=== PATIENT | male | born 1965 | race Caucasian/White ===

== ENCOUNTER 2021-08-03 14:05 | Inpatient (IN) | payer OTHER ==
[2021-08-03] MEDS ORDERED: NICOTINE 10 MG CARTRIDGE (INHALER) IH PRN (15:30)
[2021-08-03] MEDS ORDERED: ACETAMINOPHEN 325 MG TABLET (FP) PO PRN ×2 (15:30)
[2021-08-03] MEDS ORDERED: ONDANSETRON *ODT* 4 MG TABLET SL PRN (15:30)
[2021-08-03] MEDS ORDERED: MENTHOL/PHENOL 1 EACH UD MM PRN (15:30)
[2021-08-03] MEDS ORDERED: MAGNESIUM HYDROX 2400MG/30ML ORAL SUSPENSION 30 ML CUP PO PRN (15:30)
[2021-08-03] MEDS ORDERED: diazePAM 5 MG TABLET PO PRN (15:30)
[2021-08-03] MEDS ORDERED: BISMUTH SUBSALICYLATE 524 MG/30 ML PO PRN (15:30)
[2021-08-03] MEDS ORDERED: MAGNESIUM CITRATE 300 ML BOTTLE PO PRN (15:30)
[2021-08-03 15:44] VITALS: BMI 21.4
[2021-08-03] MEDS: hydrOXYzine PAMOATE 25 MG CAPSULE (FP) PO SCH ×2 (22:13→22:55)
[2021-08-03] MEDS: IBUPROFEN 400 MG TABLET (FP) PO PRN (22:14)
[2021-08-03] MEDS: diazePAM 5 MG TABLET PO SCH ×2 (22:17→22:20)
[2021-08-03] MEDS: MELATONIN 5 MG TABLETS PO SCH (22:19)
[2021-08-03] MEDS: THIAMINE HCL 100 MG TABLET (FP) PO SCH (22:20)
[2021-08-03] MEDS: BUPRENORPHINE/NALOXONE 8 MG/2 MG FILM PACKET SL SCH (23:49)
[2021-08-04] MEDS: hydrOXYzine PAMOATE 25 MG CAPSULE (FP) PO SCH ×5 (05:29→22:27)
[2021-08-04] MEDS: diazePAM 5 MG TABLET PO SCH ×4 (05:29→22:26)
[2021-08-04] MEDS: PRENATAL VITAMINS W/ FOLIC ACID TABLET (FP) PO SCH (10:16)
[2021-08-04] MEDS: BUPRENORPHINE/NALOXONE 8 MG/2 MG FILM PACKET SL SCH ×2 (10:18→22:26)
[2021-08-04 11:34] LABS: CALCIUM 8.8 mg/dL (8.5-10.1)
[2021-08-04 11:35] LABS: ALBUMIN 2.8 g/dl (3.4-5.0); BLOOD UREA NITROGEN 14.8 mg/dL (7-18)
[2021-08-04 11:38] LABS: CREATININE 0.8 mg/dL (0.55-1.3)
[2021-08-04 11:40] LABS: BILIRUBIN,TOTAL 0.1 mg/dL (0.2-1)
[2021-08-04 12:41] LABS: HEMATOCRIT 32.5 % (35.4-49); MCHC 33.8 g/dl (32.0-35.9); MEAN CELL VOLUME 88.9 fl (80-96); MEAN PLT VOLUME 8.3 fl (7.5-11.1); PLATELET COUNT 416 10^3/uL (134-434); RBC 3.66 M/mm3 (4.00-5.60); RDW 14.5 % (11.9-15.9); WHITE BLOOD COUNT 5.7 K/mm3 (4.0-10.0)
[2021-08-04] MEDS: METHOCARBAMOL 500 MG TABLET PO PRN (14:36)
[2021-08-04] MEDS: MELATONIN 5 MG TABLETS PO SCH (22:26)
[2021-08-04] MEDS: THIAMINE HCL 100 MG TABLET (FP) PO SCH (22:27)
[2021-08-04] MEDS: QUEtiapine FUMARATE 100 MG TABLET (FP) PO SCH (22:27)
[2021-08-04] MEDS: MAG HYDROX/AL HYDROX/SIMETH 30 ML UNIT-DOSE CUP PO PRN (22:28)
[2021-08-05] MEDS: hydrOXYzine PAMOATE 25 MG CAPSULE (FP) PO SCH ×5 (06:35→22:30)
[2021-08-05] MEDS: diazePAM 5 MG TABLET PO SCH ×3 (06:35→22:27)
[2021-08-05] MEDS: PRENATAL VITAMINS W/ FOLIC ACID TABLET (FP) PO SCH (10:02)
[2021-08-05] MEDS: BUPRENORPHINE/NALOXONE 8 MG/2 MG FILM PACKET SL SCH ×2 (10:02→22:26)
[2021-08-05] MEDS: METHOCARBAMOL 500 MG TABLET PO PRN (22:26)
[2021-08-05] MEDS: IBUPROFEN 400 MG TABLET (FP) PO PRN (22:26)
[2021-08-05] MEDS: THIAMINE HCL 100 MG TABLET (FP) PO SCH (22:27)
[2021-08-05] MEDS: QUEtiapine FUMARATE 100 MG TABLET (FP) PO SCH (22:27)
[2021-08-05] MEDS: MELATONIN 5 MG TABLETS PO SCH (22:27)
[2021-08-05] MEDS: MAG HYDROX/AL HYDROX/SIMETH 30 ML UNIT-DOSE CUP PO PRN (22:29)
[2021-08-06] MEDS: diazePAM 5 MG TABLET PO SCH ×2 (05:48→17:37)
[2021-08-06] MEDS: hydrOXYzine PAMOATE 25 MG CAPSULE (FP) PO SCH ×5 (05:48→22:10)
[2021-08-06] MEDS: BUPRENORPHINE/NALOXONE 8 MG/2 MG FILM PACKET SL SCH ×2 (10:10→22:09)
[2021-08-06] MEDS: PRENATAL VITAMINS W/ FOLIC ACID TABLET (FP) PO SCH (11:07)
[2021-08-06] MEDS: METHOCARBAMOL 500 MG TABLET PO PRN (17:39)
[2021-08-06] MEDS: MELATONIN 5 MG TABLETS PO SCH (22:09)
[2021-08-06] MEDS: THIAMINE HCL 100 MG TABLET (FP) PO SCH (22:10)
[2021-08-06] MEDS: QUEtiapine FUMARATE 100 MG TABLET (FP) PO SCH (22:10)
[2021-08-07] MEDS: hydrOXYzine PAMOATE 25 MG CAPSULE (FP) PO SCH ×2 (05:00→09:43)
[2021-08-07] MEDS ORDERED: diazePAM 5 MG TABLET PO ONE (06:00)
[2021-08-07] MEDS: BUPRENORPHINE/NALOXONE 8 MG/2 MG FILM PACKET SL SCH (09:43)
[2021-08-07] MEDS: PRENATAL VITAMINS W/ FOLIC ACID TABLET (FP) PO SCH (09:43)
[2021-08-07 13:14] VITALS: BP 143/96; PULSE 95; TEMP 96.4
== END 2021-08-07 13:28 | disposition home or self-care (01) | DRG 773 ==
LOC: YASAS 14:05 → Y3N 16:29
PROVIDERS: ADMIT Allergy & Immunology; ATTEND Allergy & Immunology
PROC: HZ2ZZZZ Detoxification Services for Substance Abuse Treatment (ICD-10-PCS; principal; 2021-08-03)
DX: F10.230 Alcohol dependence with withdrawal, uncomplicated (principal); F11.20 Opioid dependence, uncomplicated; F14.20 Cocaine dependence, uncomplicated; F17.210 Nicotine dependence, cigarettes, uncomplicated; F19.24 Other psychoactive substance dependence with psychoactive substance-induced mood disorder; F41.9 Anxiety disorder, unspecified; F32.A Depression, unspecified; I10 Essential (primary) hypertension; R73.9 Hyperglycemia, unspecified; D64.9 Anemia, unspecified; R01.1 Cardiac murmur, unspecified; G47.00 Insomnia, unspecified; Z91.013 Allergy to seafood; Z91.018 Allergy to other foods; Z86.69 Personal history of other diseases of the nervous system and sense organs; Z86.59 Personal history of other mental and behavioral disorders; Z91.14 Patient's other noncompliance with medication regimen; Z96.653 Presence of artificial knee joint, bilateral; Z91.51 Personal history of suicidal behavior; Z56.0 Unemployment, unspecified; Z59.01 Sheltered homelessness
CPT/HCPCS: 36415; 80053; 82947; 82962; 83036; 85027; 86780; C9803; Q0162; U0003; U0005

== ENCOUNTER 2021-11-10 18:14 | Inpatient (IN) | payer OTHER ==
[2021-11-10 20:15] VITALS: BMI 21.9
[2021-11-10] MEDS ORDERED: MENTHOL/PHENOL 1 EACH UD MM PRN (21:14)
[2021-11-10] MEDS ORDERED: NICOTINE 10 MG CARTRIDGE (INHALER) IH PRN (21:14)
[2021-11-10] MEDS ORDERED: ACETAMINOPHEN 325 MG TABLET (FP) PO PRN ×2 (21:14)
[2021-11-10] MEDS ORDERED: MAG HYDROX/AL HYDROX/SIMETH 30 ML UNIT-DOSE CUP PO PRN (21:14)
[2021-11-10] MEDS ORDERED: LOPERAMIDE HCL 2 MG CAPSULE PO PRN (21:14)
[2021-11-10] MEDS ORDERED: MAGNESIUM HYDROX 2400MG/30ML ORAL SUSPENSION 30 ML CUP PO PRN (21:14)
[2021-11-10] MEDS ORDERED: ONDANSETRON *ODT* 4 MG TABLET SL PRN (21:14)
[2021-11-10] MEDS ORDERED: BISMUTH SUBSALICYLATE 524 MG/30 ML PO PRN (21:14)
[2021-11-10] MEDS ORDERED: DICYCLOMINE HCL 10 MG CAPSULE PO PRN (21:14)
[2021-11-10] MEDS ORDERED: IBUPROFEN 400 MG TABLET (FP) PO PRN (21:14)
[2021-11-10] MEDS ORDERED: MAGNESIUM CITRATE 300 ML BOTTLE PO PRN (21:14)
[2021-11-11] MEDS: MELATONIN 5 MG TABLETS PO SCH ×2 (00:10→23:02)
[2021-11-11] MEDS: THIAMINE HCL 100 MG TABLET (FP) PO SCH ×2 (00:10→23:02)
[2021-11-11] MEDS: chlordiazePOXIDE HCL 25 MG CAPSULE PO SCH ×5 (00:59→23:02)
[2021-11-11] MEDS: PRENATAL VITAMINS W/ FOLIC ACID TABLET (FP) PO SCH (10:39)
[2021-11-11] MEDS: METHOCARBAMOL 500 MG TABLET PO PRN (10:39)
[2021-11-11 10:50] LABS: HEMATOCRIT 40.4 % (35.4-49); HEMOGLOBIN 13.2 GM/dL (11.7-16.9); MCH 28.4 pg (25.7-33.7); MCHC 32.7 g/dl (32.0-35.9); PLATELET COUNT 341 10^3/uL (134-434); RBC 4.65 M/mm3 (4.00-5.60); WHITE BLOOD COUNT 5.5 K/mm3 (4.0-10.0)
[2021-11-11 10:51] LABS: CALCIUM 9.5 mg/dL (8.5-10.1)
[2021-11-11 10:52] LABS: ALBUMIN 3.7 g/dl (3.4-5.0); BLOOD UREA NITROGEN 12.1 mg/dL (7-18)
[2021-11-11 10:55] LABS: CREATININE 0.8 mg/dL (0.55-1.3)
[2021-11-11 10:57] LABS: BILIRUBIN,TOTAL 0.3 mg/dL (0.2-1); TOT PROT 7.1 g/dl (6.4-8.2)
[2021-11-12] MEDS: chlordiazePOXIDE HCL 25 MG CAPSULE PO SCH ×4 (05:52→23:04)
[2021-11-12] MEDS: PRENATAL VITAMINS W/ FOLIC ACID TABLET (FP) PO SCH (10:25)
[2021-11-12] MEDS: METHOCARBAMOL 500 MG TABLET PO PRN ×2 (10:27→18:04)
[2021-11-12 14:08] LABS: SARS-CoV-2 NAA Not Detected (Not Detected)
[2021-11-12] MEDS: chlordiazePOXIDE HCL 25 MG CAPSULE PO PRN ×2 (14:58→22:12)
[2021-11-12] MEDS ORDERED: traZODone HCL 50 MG TABLET (FP) PO SCH (22:00)
[2021-11-12] MEDS: THIAMINE HCL 100 MG TABLET (FP) PO SCH (22:12)
[2021-11-13] MEDS ORDERED: chlordiazePOXIDE HCL 10 MG CAPSULE PO PRN
[2021-11-13 00:07] LABS: SARS-CoV-2 NAA Not Detected (Not Detected)
[2021-11-13] MEDS: chlordiazePOXIDE HCL 10 MG CAPSULE PO SCH ×2 (06:17→10:30)
[2021-11-13] MEDS: PRENATAL VITAMINS W/ FOLIC ACID TABLET (FP) PO SCH (10:29)
[2021-11-13] MEDS: METHOCARBAMOL 500 MG TABLET PO PRN (10:29)
[2021-11-13 13:58] VITALS: BP 102/69; PULSE 84; TEMP 97.8
[2021-11-14] MEDS ORDERED: chlordiazePOXIDE HCL 10 MG CAPSULE PO SCH (05:00)
[2021-11-15] MEDS ORDERED: chlordiazePOXIDE HCL 10 MG CAPSULE PO ONE (05:00)
== END 2021-11-13 13:39 | disposition left against medical advice (07) | DRG 770 ==
LOC: YASAS 18:14 → Y6N 23:14
PROVIDERS: ADMIT Allergy & Immunology; ATTEND Allergy & Immunology
PROC: HZ2ZZZZ Detoxification Services for Substance Abuse Treatment (ICD-10-PCS; principal; 2021-11-10)
DX: F10.230 Alcohol dependence with withdrawal, uncomplicated (principal); F13.20 Sedative, hypnotic or anxiolytic dependence, uncomplicated; F14.20 Cocaine dependence, uncomplicated; F17.210 Nicotine dependence, cigarettes, uncomplicated; F31.9 Bipolar disorder, unspecified; F19.24 Other psychoactive substance dependence with psychoactive substance-induced mood disorder; I10 Essential (primary) hypertension; D17.1 Benign lipomatous neoplasm of skin and subcutaneous tissue of trunk; Z96.653 Presence of artificial knee joint, bilateral; Z86.2 Personal history of diseases of the blood and blood-forming organs and certain disorders involving the immune mechanism; Z86.69 Personal history of other diseases of the nervous system and sense organs; Z91.018 Allergy to other foods; Z56.0 Unemployment, unspecified; Z59.00 Homelessness unspecified
CPT/HCPCS: 36415; 80053; 85027; 86780; 87811; C9803-CS; Q0162; U0003; U0005

== ENCOUNTER 2022-06-22 14:09 | Inpatient (IN) | payer OTHER ==
[2022-06-22 15:17] VITALS: BMI 23.1
[2022-06-22] MEDS ORDERED: LOPERAMIDE HCL 2 MG CAPSULE PO PRN (16:34)
[2022-06-22] MEDS ORDERED: ACETAMINOPHEN 325 MG TABLET (FP) PO PRN ×2 (16:34)
[2022-06-22] MEDS ORDERED: BISMUTH SUBSALICYLATE 524 MG/30 ML PO PRN (16:34)
[2022-06-22] MEDS ORDERED: chlordiazePOXIDE HCL 25 MG CAPSULE PO PRN (16:34)
[2022-06-22] MEDS ORDERED: MAG HYDROX/AL HYDROX/SIMETH 30 ML UNIT-DOSE CUP PO PRN (16:34)
[2022-06-22] MEDS ORDERED: BENZOCAINE/MENTHOL (CHLORASEPTIC ) LOZENGE MM PRN (16:34)
[2022-06-22] MEDS ORDERED: ONDANSETRON *ODT* 4 MG TABLET SL PRN (16:34)
[2022-06-22] MEDS ORDERED: IBUPROFEN 400 MG TABLET (FP) PO PRN (16:34)
[2022-06-22] MEDS ORDERED: MAGNESIUM CITRATE 300 ML BOTTLE PO PRN (16:34)
[2022-06-22] MEDS ORDERED: MAGNESIUM HYDROX 2400MG/30ML ORAL SUSPENSION 30 ML CUP PO PRN (16:34)
[2022-06-22] MEDS ORDERED: DICYCLOMINE HCL 10 MG CAPSULE PO PRN (16:34)
[2022-06-22] MEDS ORDERED: hydrOXYzine PAMOATE 25 MG CAPSULE (FP) PO PRN (16:34)
[2022-06-22] MEDS: chlordiazePOXIDE HCL 25 MG CAPSULE PO SCH ×2 (18:01→22:19)
[2022-06-22] MEDS: MELATONIN 5 MG TABLETS PO SCH (22:19)
[2022-06-22] MEDS: THIAMINE HCL 100 MG TABLET (FP) PO SCH (22:19)
[2022-06-23] MEDS: chlordiazePOXIDE HCL 25 MG CAPSULE PO SCH ×4 (05:43→22:32)
[2022-06-23] MEDS: PRENATAL VITAMINS W/ FOLIC ACID TABLET (FP) PO SCH (10:24)
[2022-06-23 15:33] LABS: HEMATOCRIT 40.3 % (35.4-49); HEMOGLOBIN 12.9 GM/dL (11.7-16.9); MCH 28.4 pg (25.7-33.7); MCHC 32.1 g/dl (32.0-35.9); MEAN CELL VOLUME 88.4 fl (80-96); MEAN PLT VOLUME 8.5 fl (7.5-11.1); PLATELET COUNT 495 10^3/uL (134-434); RBC 4.56 M/mm3 (4.00-5.60); RDW 16.4 % (11.9-15.9); WHITE BLOOD COUNT 5.2 K/mm3 (4.0-10.0)
[2022-06-23 16:24] LABS: ALBUMIN 3.4 g/dl (3.4-5.0)
[2022-06-23 16:27] LABS: CREATININE 0.7 mg/dL (0.55-1.3)
[2022-06-23 16:29] LABS: BILIRUBIN,TOTAL 0.3 mg/dL (0.2-1); TOT PROT 6.7 g/dl (6.4-8.2)
[2022-06-23] MEDS: METHOCARBAMOL 500 MG TABLET PO PRN (17:46)
[2022-06-23] MEDS: GABAPENTIN 100 MG CAPSULE PO SCH (22:25)
[2022-06-23] MEDS: MELATONIN 5 MG TABLETS PO SCH (22:30)
[2022-06-23] MEDS: THIAMINE HCL 100 MG TABLET (FP) PO SCH (22:30)
[2022-06-23] MEDS: traZODone HCL 50 MG TABLET (FP) PO SCH (22:30)
[2022-06-23] MEDS: IBUPROFEN 600 MG TABLET (FP) PO PRN (22:31)
[2022-06-24] MEDS: GABAPENTIN 100 MG CAPSULE PO SCH ×3 (07:19→22:15)
[2022-06-24] MEDS: chlordiazePOXIDE HCL 25 MG CAPSULE PO SCH ×4 (07:19→22:15)
[2022-06-24] MEDS: PRENATAL VITAMINS W/ FOLIC ACID TABLET (FP) PO SCH (10:11)
[2022-06-24] MEDS: IBUPROFEN 600 MG TABLET (FP) PO PRN ×2 (10:12→17:27)
[2022-06-24] MEDS: NICOTINE POLACRILEX 2 MG GUM BUC PRN (17:27)
[2022-06-24] MEDS: METHOCARBAMOL 500 MG TABLET PO PRN (18:20)
[2022-06-24] MEDS: traZODone HCL 50 MG TABLET (FP) PO SCH (22:15)
[2022-06-24] MEDS: THIAMINE HCL 100 MG TABLET (FP) PO SCH (22:15)
[2022-06-24] MEDS: MELATONIN 5 MG TABLETS PO SCH (22:15)
[2022-06-25] MEDS ORDERED: chlordiazePOXIDE HCL 10 MG CAPSULE PO PRN
[2022-06-25] MEDS: chlordiazePOXIDE HCL 10 MG CAPSULE PO SCH ×4 (05:12→22:12)
[2022-06-25] MEDS: GABAPENTIN 100 MG CAPSULE PO SCH ×3 (05:12→22:11)
[2022-06-25] MEDS: PRENATAL VITAMINS W/ FOLIC ACID TABLET (FP) PO SCH (10:18)
[2022-06-25] MEDS: IBUPROFEN 600 MG TABLET (FP) PO PRN (10:20)
[2022-06-25] MEDS: NICOTINE POLACRILEX 2 MG GUM BUC PRN ×3 (10:21→22:14)
[2022-06-25] MEDS: MELATONIN 5 MG TABLETS PO SCH (22:11)
[2022-06-25] MEDS: THIAMINE HCL 100 MG TABLET (FP) PO SCH (22:11)
[2022-06-25] MEDS: traZODone HCL 50 MG TABLET (FP) PO SCH (22:11)
[2022-06-26] MEDS: GABAPENTIN 100 MG CAPSULE PO SCH ×3 (06:17→22:02)
[2022-06-26] MEDS: chlordiazePOXIDE HCL 10 MG CAPSULE PO SCH ×2 (06:17→17:52)
[2022-06-26] MEDS: PRENATAL VITAMINS W/ FOLIC ACID TABLET (FP) PO SCH (10:09)
[2022-06-26] MEDS: NICOTINE 10 MG CARTRIDGE (INHALER) IH PRN ×2 (17:53→22:03)
[2022-06-26] MEDS: traZODone HCL 50 MG TABLET (FP) PO SCH (22:02)
[2022-06-26] MEDS: THIAMINE HCL 100 MG TABLET (FP) PO SCH (22:02)
[2022-06-26] MEDS: MELATONIN 5 MG TABLETS PO SCH (22:02)
[2022-06-27] MEDS ORDERED: chlordiazePOXIDE HCL 10 MG CAPSULE PO ONE (05:00)
[2022-06-27] MEDS: GABAPENTIN 100 MG CAPSULE PO SCH ×3 (05:28→22:18)
[2022-06-27] MEDS: PRENATAL VITAMINS W/ FOLIC ACID TABLET (FP) PO SCH (10:12)
[2022-06-27] MEDS: NICOTINE 10 MG CARTRIDGE (INHALER) IH PRN ×3 (10:32→22:18)
[2022-06-27 21:19] VITALS: RESP 18
[2022-06-27] MEDS: MELATONIN 5 MG TABLETS PO SCH (22:18)
[2022-06-27] MEDS: traZODone HCL 50 MG TABLET (FP) PO SCH (22:18)
[2022-06-27] MEDS: THIAMINE HCL 100 MG TABLET (FP) PO SCH (22:18)
[2022-06-28] MEDS: GABAPENTIN 100 MG CAPSULE PO SCH (05:59)
[2022-06-28 09:53] VITALS: BP 106/74; PULSE 88; TEMP 96.6
[2022-06-28] MEDS: PRENATAL VITAMINS W/ FOLIC ACID TABLET (FP) PO SCH (10:12)
[2022-06-28] MEDS: NICOTINE 10 MG CARTRIDGE (INHALER) IH PRN (10:12)
== END 2022-06-28 12:21 | disposition other institution (70) | DRG 774 ==
LOC: YASAS 14:09 → Y3N 16:58
PROVIDERS: ADMIT Allergy & Immunology; ATTEND Surgery
PROC: HZ2ZZZZ Detoxification Services for Substance Abuse Treatment (ICD-10-PCS; principal; 2022-06-22)
DX: F10.230 Alcohol dependence with withdrawal, uncomplicated (principal); F14.20 Cocaine dependence, uncomplicated; F12.20 Cannabis dependence, uncomplicated; F17.210 Nicotine dependence, cigarettes, uncomplicated; F31.9 Bipolar disorder, unspecified; F19.24 Other psychoactive substance dependence with psychoactive substance-induced mood disorder; G40.909 Epilepsy, unspecified, not intractable, without status epilepticus; G47.00 Insomnia, unspecified; Z62.810 Personal history of physical and sexual abuse in childhood; Z59.01 Sheltered homelessness; Z56.0 Unemployment, unspecified; Z91.14 Patient's other noncompliance with medication regimen
CPT/HCPCS: 36415; 80053; 85027; 86780; 87811; C9803-CS; U0003; U0005

== ENCOUNTER 2022-06-28 12:01 | Inpatient (IN) | payer OTHER ==
[2022-06-28] MEDS ORDERED: hydrOXYzine PAMOATE 25 MG CAPSULE (FP) PO PRN (14:10)
[2022-06-28] MEDS ORDERED: MAGNESIUM HYDROX 2400MG/30ML ORAL SUSPENSION 30 ML CUP PO PRN (14:10)
[2022-06-28] MEDS ORDERED: MAG HYDROX/AL HYDROX/SIMETH 30 ML UNIT-DOSE CUP PO PRN (14:10)
[2022-06-28] MEDS ORDERED: guaiFENesin 200 MG/10 ML 10 ML UNIT-DOSE CUPS PO PRN (14:10)
[2022-06-28] MEDS ORDERED: IBUPROFEN 400 MG TABLET (FP) PO PRN (14:10)
[2022-06-28] MEDS ORDERED: ACETAMINOPHEN 325 MG TABLET (FP) PO PRN (14:10)
[2022-06-28] MEDS ORDERED: BENZOCAINE/MENTHOL (CHLORASEPTIC ) LOZENGE MM PRN (14:10)
[2022-06-28] MEDS ORDERED: MAGNESIUM CITRATE 300 ML BOTTLE PO PRN (14:10)
[2022-06-28] MEDS ORDERED: P-EPHED 60MG/TRIPROLIDI 2.5MG TABLET PO PRN (14:10)
[2022-06-28] MEDS ORDERED: NICOTINE 10 MG CARTRIDGE (INHALER) IH PRN (14:10)
[2022-06-28] MEDS ORDERED: LOPERAMIDE HCL 2 MG CAPSULE PO PRN (14:10)
[2022-06-28] MEDS: MELATONIN 5 MG TABLETS PO SCH (21:18)
[2022-06-28] MEDS: THIAMINE HCL 100 MG TABLET (FP) PO SCH (21:18)
[2022-06-28] MEDS: GABAPENTIN 100 MG CAPSULE PO SCH (21:20)
[2022-06-28] MEDS ORDERED: traZODone HCL 50 MG TABLET (FP) PO SCH (22:00)
[2022-06-29] MEDS: GABAPENTIN 100 MG CAPSULE PO SCH ×3 (06:13→21:35)
[2022-06-29 06:39] VITALS: RESP 16
[2022-06-29] MEDS: PRENATAL VITAMINS W/ FOLIC ACID TABLET (FP) PO SCH (09:35)
[2022-06-29] MEDS: NICOTINE 7 MG/24 HOURS TOPICAL PATCH TD SCH (09:35)
[2022-06-29 12:55] LABS: HIV INTERPRETATION NEGATIVE (NEGATIVE)
[2022-06-29] MEDS: MELATONIN 5 MG TABLETS PO SCH (21:36)
[2022-06-29] MEDS: THIAMINE HCL 100 MG TABLET (FP) PO SCH (21:36)
[2022-06-29] MEDS ORDERED: traZODone HCL 50 MG TABLET (FP) PO SCH (22:00)
[2022-06-30] MEDS: GABAPENTIN 100 MG CAPSULE PO SCH (06:30)
[2022-06-30 06:36] VITALS: BP 116/73; PULSE 78; TEMP 98
[2022-06-30] MEDS: NICOTINE 7 MG/24 HOURS TOPICAL PATCH TD SCH (10:26)
[2022-06-30] MEDS: PRENATAL VITAMINS W/ FOLIC ACID TABLET (FP) PO SCH (10:26)
[2022-06-30] MEDS ORDERED: NICOTINE 7 MG/24 HOURS TOPICAL PATCH TD PRN (11:38)
== END 2022-06-30 12:33 | disposition left against medical advice (07) | DRG 770 ==
LOC: YASAS 12:01 → Y3E 12:02
PROVIDERS: ADMIT Allergy & Immunology; ATTEND Psychiatry & Neurology Pain Medicine
PROC: HZ42ZZZ Group Counseling for Substance Abuse Treatment, Cognitive-Behavioral (ICD-10-PCS; principal; 2022-06-28)
DX: F10.20 Alcohol dependence, uncomplicated (principal); F14.20 Cocaine dependence, uncomplicated; F12.20 Cannabis dependence, uncomplicated; F17.210 Nicotine dependence, cigarettes, uncomplicated; F31.9 Bipolar disorder, unspecified; F41.9 Anxiety disorder, unspecified; F90.9 Attention-deficit hyperactivity disorder, unspecified type; G40.909 Epilepsy, unspecified, not intractable, without status epilepticus; R73.03 Prediabetes; Z96.653 Presence of artificial knee joint, bilateral; Z59.00 Homelessness unspecified
CPT/HCPCS: 36415; 87389

== ENCOUNTER 2022-08-11 12:37 | Inpatient (IN) | payer OTHER ==
[2022-08-11 12:56] VITALS: BMI 25.7
[2022-08-11] MEDS ORDERED: diazePAM 5 MG TABLET PO PRN (13:25)
[2022-08-11] MEDS ORDERED: NICOTINE 10 MG CARTRIDGE (INHALER) IH PRN (13:25)
[2022-08-11] MEDS ORDERED: ACETAMINOPHEN 325 MG TABLET (FP) PO PRN ×2 (13:25)
[2022-08-11] MEDS ORDERED: MAGNESIUM HYDROX 2400MG/30ML ORAL SUSPENSION 30 ML CUP PO PRN (13:25)
[2022-08-11] MEDS ORDERED: POLYETHYLENE GLYCOL (HEALTHYLAX) 3350 17 GM PACKET PO PRN (13:25)
[2022-08-11] MEDS ORDERED: BISMUTH SUBSALICYLATE 262 MG/15 ML BTL PO PRN (13:25)
[2022-08-11] MEDS ORDERED: ONDANSETRON *ODT* 4 MG TABLET SL PRN (13:25)
[2022-08-11] MEDS ORDERED: IBUPROFEN 600 MG TABLET (FP) PO PRN (13:25)
[2022-08-11] MEDS ORDERED: IBUPROFEN 400 MG TABLET (FP) PO PRN (13:25)
[2022-08-11] MEDS ORDERED: LOPERAMIDE HCL 2 MG CAPSULE PO PRN (13:25)
[2022-08-11] MEDS ORDERED: DICYCLOMINE HCL 10 MG CAPSULE PO PRN (13:25)
[2022-08-11] MEDS ORDERED: hydrOXYzine PAMOATE 25 MG CAPSULE (FP) PO PRN (13:25)
[2022-08-11] MEDS ORDERED: NICOTINE 7 MG/24 HOURS TOPICAL PATCH TD PRN (13:25)
[2022-08-11] MEDS ORDERED: BENZOCAINE/MENTHOL (CHLORASEPTIC ) LOZENGE MM PRN (13:25)
[2022-08-11] MEDS ORDERED: MAG HYDROX/AL HYDROX/SIMETH 30 ML UNIT-DOSE CUP PO PRN (13:25)
[2022-08-11 17:33] LABS: HEMATOCRIT 43.3 % (35.4-49); HEMOGLOBIN 13.9 GM/dL (11.7-16.9); MCH 28.1 pg (25.7-33.7); MCHC 32.1 g/dl (32.0-35.9); MEAN CELL VOLUME 87.4 fl (80-96); PLATELET COUNT 307 10^3/uL (134-434); RBC 4.95 M/mm3 (4.00-5.60); RDW 16.2 % (11.9-15.9); WHITE BLOOD COUNT 7.6 K/mm3 (4.0-10.0)
[2022-08-11 17:35] LABS: ALBUMIN 4.1 g/dl (3.4-5.0); CALCIUM 9.8 mg/dL (8.5-10.1)
[2022-08-11] MEDS: diazePAM 5 MG TABLET PO SCH ×2 (17:35→22:39)
[2022-08-11 17:37] LABS: BLOOD UREA NITROGEN 19.1 mg/dL (7-18)
[2022-08-11 17:40] LABS: BILIRUBIN,TOTAL 1.3 mg/dL (0.2-1); CREATININE 0.8 mg/dL (0.55-1.3); TOT PROT 7.6 g/dl (6.4-8.2)
[2022-08-11] MEDS: THIAMINE HCL 100 MG TABLET (FP) PO SCH (22:39)
[2022-08-11] MEDS: MELATONIN 5 MG TABLETS PO SCH (22:40)
[2022-08-12] MEDS: diazePAM 5 MG TABLET PO SCH ×4 (05:44→22:39)
[2022-08-12] MEDS: METHOCARBAMOL 500 MG TABLET PO PRN (10:33)
[2022-08-12] MEDS: PRENATAL VITAMINS W/ FOLIC ACID TABLET (FP) PO SCH (10:33)
[2022-08-12] MEDS ORDERED: NICOTINE POLACRILEX 2 MG GUM BC PRN (15:00)
[2022-08-12] MEDS: GABAPENTIN 100 MG CAPSULE PO SCH ×2 (15:04→22:38)
[2022-08-12] MEDS: NICOTINE POLACRILEX 2 MG GUM BUC PRN ×2 (15:05→17:42)
[2022-08-12] MEDS: THIAMINE HCL 100 MG TABLET (FP) PO SCH (22:38)
[2022-08-12] MEDS: traZODone HCL 50 MG TABLET (FP) PO SCH (22:38)
[2022-08-12] MEDS: MELATONIN 5 MG TABLETS PO SCH (23:10)
[2022-08-13] MEDS: GABAPENTIN 100 MG CAPSULE PO SCH ×3 (05:27→22:23)
[2022-08-13] MEDS: diazePAM 5 MG TABLET PO SCH ×3 (05:27→22:23)
[2022-08-13] MEDS: METHOCARBAMOL 500 MG TABLET PO PRN (10:38)
[2022-08-13] MEDS: PRENATAL VITAMINS W/ FOLIC ACID TABLET (FP) PO SCH (10:38)
[2022-08-13] MEDS: NICOTINE POLACRILEX 2 MG GUM BUC PRN (10:39)
[2022-08-13] MEDS: traZODone HCL 50 MG TABLET (FP) PO SCH (22:23)
[2022-08-13] MEDS: THIAMINE HCL 100 MG TABLET (FP) PO SCH (22:23)
[2022-08-13] MEDS: MELATONIN 5 MG TABLETS PO SCH (22:24)
[2022-08-14] MEDS: diazePAM 5 MG TABLET PO SCH ×2 (05:33→17:22)
[2022-08-14] MEDS: GABAPENTIN 100 MG CAPSULE PO SCH ×3 (05:33→21:43)
[2022-08-14] MEDS: METHOCARBAMOL 500 MG TABLET PO PRN ×2 (10:29→21:46)
[2022-08-14] MEDS: PRENATAL VITAMINS W/ FOLIC ACID TABLET (FP) PO SCH (10:29)
[2022-08-14] MEDS: NICOTINE POLACRILEX 2 MG GUM BUC PRN (14:24)
[2022-08-14] MEDS: THIAMINE HCL 100 MG TABLET (FP) PO SCH (21:43)
[2022-08-14] MEDS: MELATONIN 5 MG TABLETS PO SCH (21:43)
[2022-08-14] MEDS: traZODone HCL 50 MG TABLET (FP) PO SCH (21:43)
[2022-08-15] MEDS: GABAPENTIN 100 MG CAPSULE PO SCH ×2 (05:18→13:00)
[2022-08-15] MEDS ORDERED: diazePAM 5 MG TABLET PO ONE (06:00)
[2022-08-15 09:12] VITALS: RESP 18
[2022-08-15] MEDS: NICOTINE POLACRILEX 2 MG GUM BUC PRN (10:01)
[2022-08-15] MEDS: PRENATAL VITAMINS W/ FOLIC ACID TABLET (FP) PO SCH (10:01)
[2022-08-15 12:41] VITALS: BP 110/84; PULSE 84; TEMP 98.2
== END 2022-08-15 13:02 | disposition other institution (70) | DRG 774 ==
LOC: YASAS 12:37 → Y6N 14:09
PROVIDERS: ADMIT Allergy & Immunology; ATTEND Surgery
PROC: HZ2ZZZZ Detoxification Services for Substance Abuse Treatment (ICD-10-PCS; principal; 2022-08-11)
DX: F10.230 Alcohol dependence with withdrawal, uncomplicated (principal); F14.20 Cocaine dependence, uncomplicated; F12.20 Cannabis dependence, uncomplicated; F17.210 Nicotine dependence, cigarettes, uncomplicated; F19.280 Other psychoactive substance dependence with psychoactive substance-induced anxiety disorder; F19.282 Other psychoactive substance dependence with psychoactive substance-induced sleep disorder; D17.1 Benign lipomatous neoplasm of skin and subcutaneous tissue of trunk; I10 Essential (primary) hypertension; Z62.810 Personal history of physical and sexual abuse in childhood; Z96.653 Presence of artificial knee joint, bilateral; Z86.2 Personal history of diseases of the blood and blood-forming organs and certain disorders involving the immune mechanism; Z91.014 Allergy to mammalian meats
CPT/HCPCS: 36415; 80053; 85027; 86780; 87811; C9803-CS; U0003; U0005

== ENCOUNTER 2022-08-15 13:14 | Inpatient (IN) | payer OTHER ==
[~2022-08-15 13:14] MED LIST: ACETAMINOPHEN 325 MG TABLET (FP) PO PRN; BENZOCAINE/MENTHOL (CHLORASEPTIC ) LOZENGE MM PRN; LOPERAMIDE HCL 2 MG CAPSULE PO PRN; MAG HYDROX/AL HYDROX/SIMETH 30 ML UNIT-DOSE CUP PO PRN; MAGNESIUM HYDROX 2400MG/30ML ORAL SUSPENSION 30 ML CUP PO PRN; NICOTINE 10 MG CARTRIDGE (INHALER) IH PRN; NICOTINE 7 MG/24 HOURS TOPICAL PATCH TD PRN; P-EPHED 60MG/TRIPROLIDI 2.5MG TABLET PO PRN; POLYETHYLENE GLYCOL (HEALTHYLAX) 3350 17 GM PACKET PO PRN; guaiFENesin 200 MG/10 ML 10 ML UNIT-DOSE CUPS PO PRN; hydrOXYzine PAMOATE 25 MG CAPSULE (FP) PO PRN
[2022-08-15] MEDS: GABAPENTIN 100 MG CAPSULE PO SCH ×2 (13:43→21:59)
[2022-08-15] MEDS: traZODone HCL 100 MG, traZODone HCL 50 MG PO SCH (21:59)
[2022-08-15] MEDS: THIAMINE HCL 100 MG TABLET (FP) PO SCH (22:00)
[2022-08-15] MEDS: MELATONIN 5 MG TABLETS PO SCH (22:00)
[2022-08-15] MEDS ORDERED: traZODone HCL 150 MG TABLET PO SCH (22:00)
[2022-08-16] MEDS: GABAPENTIN 100 MG CAPSULE PO SCH ×3 (06:05→21:37)
[2022-08-16] MEDS: PRENATAL VITAMINS W/ FOLIC ACID TABLET (FP) PO SCH (10:13)
[2022-08-16] MEDS ORDERED: BUPRENORPHINE/NALOXONE 2 MG/0.5 MG FILM PACKET SL ONE (11:50)
[2022-08-16] MEDS: OLANZapine 5 MG TABLET PO SCH (21:37)
[2022-08-16] MEDS: traZODone HCL 100 MG, traZODone HCL 50 MG PO SCH (21:37)
[2022-08-16] MEDS: MELATONIN 5 MG TABLETS PO SCH (21:38)
[2022-08-16] MEDS: THIAMINE HCL 100 MG TABLET (FP) PO SCH (21:38)
[2022-08-17] MEDS: GABAPENTIN 100 MG CAPSULE PO SCH ×3 (06:19→21:33)
[2022-08-17] MEDS: BUPRENORPHINE/NALOXONE 2 MG/0.5 MG FILM PACKET SL SCH (10:22)
[2022-08-17] MEDS: PRENATAL VITAMINS W/ FOLIC ACID TABLET (FP) PO SCH (10:22)
[2022-08-17] MEDS: THIAMINE HCL 100 MG TABLET (FP) PO SCH (21:32)
[2022-08-17] MEDS: MELATONIN 5 MG TABLETS PO SCH (21:32)
[2022-08-17] MEDS: traZODone HCL 100 MG, traZODone HCL 50 MG PO SCH (21:32)
[2022-08-17] MEDS: IBUPROFEN 400 MG TABLET (FP) PO PRN (21:34)
[2022-08-17] MEDS: OLANZapine 5 MG TABLET PO SCH (21:35)
[2022-08-18] MEDS: GABAPENTIN 100 MG CAPSULE PO SCH ×3 (06:18→21:05)
[2022-08-18] MEDS: BUPRENORPHINE/NALOXONE 2 MG/0.5 MG FILM PACKET SL SCH (10:12)
[2022-08-18] MEDS: PRENATAL VITAMINS W/ FOLIC ACID TABLET (FP) PO SCH (10:12)
[2022-08-18] MEDS: NICOTINE POLACRILEX 2 MG GUM BUC PRN (13:45)
[2022-08-18] MEDS: THIAMINE HCL 100 MG TABLET (FP) PO SCH (21:04)
[2022-08-18] MEDS: IBUPROFEN 400 MG TABLET (FP) PO PRN (21:05)
[2022-08-18] MEDS: OLANZapine 5 MG TABLET PO SCH (21:05)
[2022-08-18] MEDS: traZODone HCL 100 MG, traZODone HCL 50 MG PO SCH (21:05)
[2022-08-18] MEDS: MELATONIN 5 MG TABLETS PO SCH (21:05)
[2022-08-19] MEDS: GABAPENTIN 100 MG CAPSULE PO SCH ×3 (06:01→21:13)
[2022-08-19] MEDS: PRENATAL VITAMINS W/ FOLIC ACID TABLET (FP) PO SCH (10:00)
[2022-08-19] MEDS: BUPRENORPHINE/NALOXONE 2 MG/0.5 MG FILM PACKET SL SCH (10:00)
[2022-08-19] MEDS: IBUPROFEN 400 MG TABLET (FP) PO PRN (18:50)
[2022-08-19] MEDS: MELATONIN 5 MG TABLETS PO SCH (21:13)
[2022-08-19] MEDS: traZODone HCL 100 MG, traZODone HCL 50 MG PO SCH (21:13)
[2022-08-19] MEDS: THIAMINE HCL 100 MG TABLET (FP) PO SCH (21:13)
[2022-08-19] MEDS: OLANZapine 5 MG TABLET PO SCH (21:13)
[2022-08-19] MEDS: NICOTINE POLACRILEX 2 MG GUM BUC PRN (21:14)
[2022-08-20] MEDS: GABAPENTIN 100 MG CAPSULE PO SCH ×3 (05:57→21:19)
[2022-08-20] MEDS: NICOTINE POLACRILEX 2 MG GUM BUC PRN ×2 (05:58→14:32)
[2022-08-20] MEDS: BUPRENORPHINE/NALOXONE 2 MG/0.5 MG FILM PACKET SL SCH (09:35)
[2022-08-20] MEDS: PRENATAL VITAMINS W/ FOLIC ACID TABLET (FP) PO SCH (09:35)
[2022-08-20] MEDS: TOLNAFTATE 1% CREAM 15 GM TUBE TP SCH ×2 (14:32→21:21)
[2022-08-20] MEDS: OLANZapine 5 MG TABLET PO SCH (21:18)
[2022-08-20] MEDS: traZODone HCL 100 MG, traZODone HCL 50 MG PO SCH (21:18)
[2022-08-20] MEDS: IBUPROFEN 400 MG TABLET (FP) PO PRN (21:19)
[2022-08-20] MEDS: BUPRENORPHINE/NALOXONE 4 MG/1 MG FILM PACKET SL SCH (21:20)
[2022-08-20] MEDS: THIAMINE HCL 100 MG TABLET (FP) PO SCH (21:20)
[2022-08-20] MEDS: MELATONIN 5 MG TABLETS PO SCH (21:20)
[2022-08-21] MEDS: NICOTINE POLACRILEX 2 MG GUM BUC PRN ×4 (05:59→21:24)
[2022-08-21] MEDS: GABAPENTIN 100 MG CAPSULE PO SCH ×3 (05:59→21:22)
[2022-08-21] MEDS: PRENATAL VITAMINS W/ FOLIC ACID TABLET (FP) PO SCH (09:58)
[2022-08-21] MEDS: TOLNAFTATE 1% CREAM 15 GM TUBE TP SCH ×2 (09:59→21:24)
[2022-08-21] MEDS: BUPRENORPHINE/NALOXONE 4 MG/1 MG FILM PACKET SL SCH ×2 (09:59→21:23)
[2022-08-21] MEDS: THIAMINE HCL 100 MG TABLET (FP) PO SCH (21:21)
[2022-08-21] MEDS: MELATONIN 5 MG TABLETS PO SCH (21:21)
[2022-08-21] MEDS: traZODone HCL 100 MG, traZODone HCL 50 MG PO SCH (21:22)
[2022-08-21] MEDS: OLANZapine 5 MG TABLET PO SCH (21:22)
[2022-08-21] MEDS: IBUPROFEN 400 MG TABLET (FP) PO PRN (21:23)
[2022-08-22] MEDS: GABAPENTIN 100 MG CAPSULE PO SCH ×3 (05:55→21:16)
[2022-08-22] MEDS: NICOTINE POLACRILEX 2 MG GUM BUC PRN ×4 (05:55→21:16)
[2022-08-22] MEDS: PRENATAL VITAMINS W/ FOLIC ACID TABLET (FP) PO SCH (10:00)
[2022-08-22] MEDS: TOLNAFTATE 1% CREAM 15 GM TUBE TP SCH ×2 (10:00→21:17)
[2022-08-22] MEDS: BUPRENORPHINE/NALOXONE 4 MG/1 MG FILM PACKET SL SCH ×2 (10:01→21:17)
[2022-08-22] MEDS: MELATONIN 5 MG TABLETS PO SCH (21:16)
[2022-08-22] MEDS: THIAMINE HCL 100 MG TABLET (FP) PO SCH (21:16)
[2022-08-22] MEDS: traZODone HCL 100 MG, traZODone HCL 50 MG PO SCH (21:16)
[2022-08-22] MEDS: OLANZapine 5 MG TABLET PO SCH (21:17)
[2022-08-23] MEDS: GABAPENTIN 100 MG CAPSULE PO SCH (05:46)
[2022-08-23] MEDS: NICOTINE POLACRILEX 2 MG GUM BUC PRN ×2 (05:47→10:38)
[2022-08-23 07:38] VITALS: BP 116/58; PULSE 72; RESP 16; TEMP 98
[2022-08-23] MEDS: TOLNAFTATE 1% CREAM 15 GM TUBE TP SCH (10:00)
[2022-08-23] MEDS: PRENATAL VITAMINS W/ FOLIC ACID TABLET (FP) PO SCH (10:00)
[2022-08-23] MEDS: BUPRENORPHINE/NALOXONE 4 MG/1 MG FILM PACKET SL SCH (10:00)
== END 2022-08-23 11:37 | disposition home or self-care (01) | DRG 772 ==
LOC: YASAS 13:14 → Y3W 13:18
PROVIDERS: ADMIT Allergy & Immunology; ATTEND Psychiatry & Neurology Pain Medicine
PROC: HZ42ZZZ Group Counseling for Substance Abuse Treatment, Cognitive-Behavioral (ICD-10-PCS; principal; 2022-08-15)
DX: F10.20 Alcohol dependence, uncomplicated (principal); F11.20 Opioid dependence, uncomplicated; F17.210 Nicotine dependence, cigarettes, uncomplicated; F31.9 Bipolar disorder, unspecified; F41.9 Anxiety disorder, unspecified; G47.00 Insomnia, unspecified; I10 Essential (primary) hypertension; B35.3 Tinea pedis; Z96.653 Presence of artificial knee joint, bilateral; Z62.810 Personal history of physical and sexual abuse in childhood; Z91.018 Allergy to other foods; Z91.199 Patient's noncompliance with other medical treatment and regimen due to unspecified reason
CPT/HCPCS: 36415; 86803

== ENCOUNTER 2022-10-26 13:02 | Inpatient (IN) | payer OTHER ==
[2022-10-26 14:29] VITALS: BMI 25.7
[2022-10-26] MEDS ORDERED: BISMUTH SUBSALICYLATE 524 MG/30 ML PO PRN (16:03)
[2022-10-26] MEDS ORDERED: MAG HYDROX/AL HYDROX/SIMETH 30 ML UNIT-DOSE CUP PO PRN (16:03)
[2022-10-26] MEDS ORDERED: IBUPROFEN 600 MG TABLET (FP) PO PRN (16:03)
[2022-10-26] MEDS ORDERED: MAGNESIUM HYDROX 2400MG/30ML ORAL SUSPENSION 30 ML CUP PO PRN (16:03)
[2022-10-26] MEDS ORDERED: IBUPROFEN 400 MG TABLET (FP) PO PRN (16:03)
[2022-10-26] MEDS ORDERED: NALOXONE HCL 0.4 MG/ML VIAL IM PRN (16:03)
[2022-10-26] MEDS ORDERED: LORazepam 1 MG TABLET PO PRN (16:03)
[2022-10-26] MEDS ORDERED: LORazepam 2 MG TABLET PO ONE (16:03)
[2022-10-26] MEDS ORDERED: POLYETHYLENE GLYCOL (HEALTHYLAX) 3350 17 GM PACKET PO PRN (16:03)
[2022-10-26] MEDS ORDERED: NICOTINE 10 MG CARTRIDGE (INHALER) IH PRN (16:03)
[2022-10-26] MEDS ORDERED: BENZONATATE 200 MG CAPSULE PO PRN (16:03)
[2022-10-26] MEDS ORDERED: guaiFENesin 600 MG TABLET.ER (FP) PO PRN (16:03)
[2022-10-26] MEDS ORDERED: ONDANSETRON *ODT* 4 MG TABLET SL PRN (16:03)
[2022-10-26] MEDS ORDERED: BENZOCAINE/MENTHOL (CHLORASEPTIC ) LOZENGE MM PRN (16:03)
[2022-10-26] MEDS ORDERED: DICYCLOMINE HCL 10 MG CAPSULE PO PRN (16:03)
[2022-10-26] MEDS ORDERED: LOPERAMIDE HCL 2 MG CAPSULE PO PRN (16:03)
[2022-10-26] MEDS ORDERED: hydrOXYzine PAMOATE 25 MG CAPSULE (FP) PO PRN (16:03)
[2022-10-26] MEDS ORDERED: NALOXONE HCL (KLOXXADO) 8 MG SPRAY NS PRN (16:03)
[2022-10-26] MEDS ORDERED: ACETAMINOPHEN 325 MG TABLET (FP) PO PRN (16:03)
[2022-10-26] MEDS ORDERED: LORazepam 2 MG TABLET ONE (17:38)
[2022-10-26] MEDS ORDERED: PRENATAL VITAMINS W/ FOLIC ACID TABLET (FP) PO ONE (17:40)
[2022-10-26] MEDS: PRENATAL VITAMINS W/ FOLIC ACID TABLET (FP) PO SCH (17:42)
[2022-10-26] MEDS: LORazepam 2 MG TABLET PO SCH ×2 (17:59→23:03)
[2022-10-26] MEDS: NICOTINE 14 MG/24 HOURS TOPICAL PATCH TD SCH (17:59)
[2022-10-26] MEDS ORDERED: MELATONIN 5 MG TABLETS PO SCH (22:00)
[2022-10-26] MEDS: THIAMINE HCL 100 MG TABLET (FP) PO SCH (23:03)
[2022-10-27] MEDS: LORazepam 2 MG TABLET PO SCH ×4 (06:05→22:55)
[2022-10-27 09:57] VITALS: RESP 18
[2022-10-27] MEDS: NICOTINE 14 MG/24 HOURS TOPICAL PATCH TD SCH (10:56)
[2022-10-27] MEDS: PRENATAL VITAMINS W/ FOLIC ACID TABLET (FP) PO SCH (10:56)
[2022-10-27 13:16] LABS: HEMOGLOBIN 13.1 GM/dL (11.7-16.9); MCH 29.1 pg (25.7-33.7); MCHC 32.8 g/dl (32.0-35.9); MEAN CELL VOLUME 88.7 fl (80-96); MEAN PLT VOLUME 8.7 fl (7.5-11.1); PLATELET COUNT 376 10^3/uL (134-434); RBC 4.51 M/mm3 (4.00-5.60); RDW 14.8 % (11.9-15.9); WHITE BLOOD COUNT 6.6 K/mm3 (4.0-10.0)
[2022-10-27 13:32] LABS: BLOOD UREA NITROGEN 13.6 mg/dL (7-18)
[2022-10-27 13:33] LABS: BILIRUBIN,TOTAL 0.6 mg/dL (0.2-1)
[2022-10-27 13:34] LABS: TOT PROT 7.1 g/dl (6.4-8.2)
[2022-10-27 13:35] LABS: CREATININE 0.7 mg/dL (0.55-1.3)
[2022-10-27 13:36] LABS: ALBUMIN 3.8 g/dl (3.4-5.0); CALCIUM 9.1 mg/dL (8.5-10.1)
[2022-10-27] MEDS: GABAPENTIN 100 MG CAPSULE PO SCH ×2 (13:56→22:55)
[2022-10-27] MEDS: NICOTINE POLACRILEX 2 MG GUM BUC PRN (15:00)
[2022-10-27] MEDS: traZODone HCL 50 MG TABLET (FP) PO SCH (22:55)
[2022-10-27] MEDS: THIAMINE HCL 100 MG TABLET (FP) PO SCH (22:55)
[2022-10-27] MEDS: OLANZapine 2.5 MG TABLET PO SCH (23:52)
[2022-10-28] MEDS: GABAPENTIN 100 MG CAPSULE PO SCH ×3 (05:57→21:42)
[2022-10-28] MEDS: LORazepam 1 MG TABLET PO SCH ×4 (05:58→23:28)
[2022-10-28] MEDS: NICOTINE 14 MG/24 HOURS TOPICAL PATCH TD SCH (10:22)
[2022-10-28] MEDS: NICOTINE POLACRILEX 2 MG GUM BUC PRN ×4 (10:23→21:43)
[2022-10-28] MEDS: PRENATAL VITAMINS W/ FOLIC ACID TABLET (FP) PO SCH (10:23)
[2022-10-28] MEDS: traZODone HCL 50 MG TABLET (FP) PO SCH (21:41)
[2022-10-28] MEDS: THIAMINE HCL 100 MG TABLET (FP) PO SCH (21:41)
[2022-10-28] MEDS: METHOCARBAMOL 500 MG TABLET PO PRN (21:43)
[2022-10-28] MEDS: OLANZapine 2.5 MG TABLET PO SCH (23:29)
[2022-10-29] MEDS ORDERED: LORazepam 0.5 MG TABLET PO PRN
[2022-10-29] MEDS: GABAPENTIN 100 MG CAPSULE PO SCH ×2 (05:53→13:56)
[2022-10-29] MEDS: LORazepam 0.5 MG TABLET PO SCH ×4 (05:53→17:43)
[2022-10-29] MEDS: NICOTINE POLACRILEX 2 MG GUM BUC PRN ×2 (05:58→10:53)
[2022-10-29] MEDS: METHOCARBAMOL 500 MG TABLET PO PRN (10:49)
[2022-10-29] MEDS: NICOTINE 14 MG/24 HOURS TOPICAL PATCH TD SCH (10:49)
[2022-10-29] MEDS: PRENATAL VITAMINS W/ FOLIC ACID TABLET (FP) PO SCH (11:08)
[2022-10-29 18:13] VITALS: BP 148/77; PULSE 101; TEMP 98.4
[2022-10-30] MEDS ORDERED: LORazepam 0.5 MG TABLET PO ONE (05:00)
== END 2022-10-29 18:23 | disposition home or self-care (01) | DRG 774 ==
LOC: YASAS 13:02 → Y6N 16:16
PROVIDERS: ADMIT Allergy & Immunology; ATTEND Surgery
PROC: HZ2ZZZZ Detoxification Services for Substance Abuse Treatment (ICD-10-PCS; principal; 2022-10-26)
DX: F10.230 Alcohol dependence with withdrawal, uncomplicated (principal); F14.20 Cocaine dependence, uncomplicated; F17.210 Nicotine dependence, cigarettes, uncomplicated; F19.282 Other psychoactive substance dependence with psychoactive substance-induced sleep disorder; F19.280 Other psychoactive substance dependence with psychoactive substance-induced anxiety disorder; F31.9 Bipolar disorder, unspecified; U07.1 COVID-19; Z62.810 Personal history of physical and sexual abuse in childhood; Z96.653 Presence of artificial knee joint, bilateral
CPT/HCPCS: 36415; 80053; 85027; 86780; 87811; 93005; 93010; C9803-CS; U0003; U0005

== ENCOUNTER 2022-11-21 13:08 | Inpatient (IN) | payer OTHER ==
[2022-11-21 14:24] VITALS: BMI 23.8
[2022-11-21] MEDS ORDERED: diazePAM 5 MG TABLET PO PRN (17:23)
[2022-11-21] MEDS ORDERED: NALOXONE HCL 0.4 MG/ML VIAL IM PRN (17:23)
[2022-11-21] MEDS ORDERED: IBUPROFEN 400 MG TABLET (FP) PO PRN (17:23)
[2022-11-21] MEDS ORDERED: NICOTINE 10 MG CARTRIDGE (INHALER) IH PRN (17:23)
[2022-11-21] MEDS ORDERED: MAGNESIUM HYDROX 2400MG/30ML ORAL SUSPENSION 30 ML CUP PO PRN (17:23)
[2022-11-21] MEDS ORDERED: LOPERAMIDE HCL 2 MG CAPSULE PO PRN (17:23)
[2022-11-21] MEDS ORDERED: ACETAMINOPHEN 325 MG TABLET (FP) PO PRN (17:23)
[2022-11-21] MEDS ORDERED: BENZONATATE 200 MG CAPSULE PO PRN (17:23)
[2022-11-21] MEDS ORDERED: ONDANSETRON *ODT* 4 MG TABLET SL PRN (17:23)
[2022-11-21] MEDS ORDERED: guaiFENesin 600 MG TABLET.ER (FP) PO PRN (17:23)
[2022-11-21] MEDS ORDERED: BISMUTH SUBSALICYLATE 524 MG/30 ML PO PRN (17:23)
[2022-11-21] MEDS ORDERED: BENZOCAINE/MENTHOL (CHLORASEPTIC ) LOZENGE MM PRN (17:23)
[2022-11-21] MEDS ORDERED: NALOXONE HCL (KLOXXADO) 8 MG SPRAY NS PRN (17:23)
[2022-11-21] MEDS ORDERED: DICYCLOMINE HCL 10 MG CAPSULE PO PRN (17:23)
[2022-11-21] MEDS ORDERED: MAG HYDROX/AL HYDROX/SIMETH 30 ML UNIT-DOSE CUP PO PRN (17:23)
[2022-11-21] MEDS ORDERED: POLYETHYLENE GLYCOL (HEALTHYLAX) 3350 17 GM PACKET PO PRN (17:23)
[2022-11-21] MEDS ORDERED: NICOTINE POLACRILEX 2 MG GUM BUC PRN (17:23)
[2022-11-21] MEDS ORDERED: hydrOXYzine PAMOATE 25 MG CAPSULE (FP) PO PRN (17:23)
[2022-11-21] MEDS: IBUPROFEN 600 MG TABLET (FP) PO PRN (19:14)
[2022-11-21] MEDS ORDERED: MELATONIN 5 MG TABLETS PO SCH (22:00)
[2022-11-21] MEDS: diazePAM 5 MG TABLET PO SCH (22:43)
[2022-11-21] MEDS: THIAMINE HCL 100 MG TABLET (FP) PO SCH (22:43)
[2022-11-22] MEDS: diazePAM 5 MG TABLET PO SCH ×4 (05:15→22:16)
[2022-11-22] MEDS: IBUPROFEN 600 MG TABLET (FP) PO PRN (05:16)
[2022-11-22] MEDS: PRENATAL VITAMINS W/ FOLIC ACID TABLET (FP) PO SCH (10:38)
[2022-11-22 11:25] LABS: HEMATOCRIT 37.5 % (35.4-49); HEMOGLOBIN 12.6 GM/dL (11.7-16.9); MCH 29.7 pg (25.7-33.7); MCHC 33.6 g/dl (32.0-35.9); MEAN CELL VOLUME 88.5 fl (80-96); MEAN PLT VOLUME 8.6 fl (7.5-11.1); PLATELET COUNT 268 10^3/uL (134-434); RBC 4.24 M/mm3 (4.00-5.60); RDW 14.3 % (11.9-15.9); WHITE BLOOD COUNT 5.1 K/mm3 (4.0-10.0)
[2022-11-22 11:32] LABS: ALBUMIN 3.4 g/dl (3.4-5.0); BLOOD UREA NITROGEN 15.7 mg/dL (7-18)
[2022-11-22 11:35] LABS: CREATININE 0.7 mg/dL (0.55-1.3)
[2022-11-22 11:36] LABS: BILIRUBIN,TOTAL 0.6 mg/dL (0.2-1); TOT PROT 6.5 g/dl (6.4-8.2)
[2022-11-22] MEDS: GABAPENTIN 100 MG CAPSULE PO SCH ×2 (13:49→22:16)
[2022-11-22] MEDS: METHOCARBAMOL 500 MG TABLET PO PRN (17:18)
[2022-11-22] MEDS: OLANZapine 2.5 MG TABLET PO SCH (22:16)
[2022-11-22] MEDS: traZODone HCL 50 MG TABLET (FP) PO SCH (22:16)
[2022-11-22] MEDS: THIAMINE HCL 100 MG TABLET (FP) PO SCH (22:16)
[2022-11-23] MEDS: diazePAM 5 MG TABLET PO SCH ×3 (05:19→22:16)
[2022-11-23] MEDS: GABAPENTIN 100 MG CAPSULE PO SCH ×3 (05:19→22:15)
[2022-11-23] MEDS: PRENATAL VITAMINS W/ FOLIC ACID TABLET (FP) PO SCH (10:21)
[2022-11-23] MEDS: traZODone HCL 50 MG TABLET (FP) PO SCH (22:15)
[2022-11-23] MEDS: OLANZapine 2.5 MG TABLET PO SCH (22:15)
[2022-11-23] MEDS: THIAMINE HCL 100 MG TABLET (FP) PO SCH (22:15)
[2022-11-24] MEDS: GABAPENTIN 100 MG CAPSULE PO SCH ×2 (05:17→13:37)
[2022-11-24] MEDS: diazePAM 5 MG TABLET PO SCH ×2 (05:17→19:04)
[2022-11-24] MEDS: PRENATAL VITAMINS W/ FOLIC ACID TABLET (FP) PO SCH (10:23)
[2022-11-24] MEDS: METHOCARBAMOL 500 MG TABLET PO PRN (10:24)
[2022-11-24 17:16] VITALS: BP 122/69; PULSE 68; RESP 17; TEMP 97.8
[2022-11-25] MEDS ORDERED: diazePAM 5 MG TABLET PO ONE (06:00)
== END 2022-11-24 18:45 | disposition home or self-care (01) | DRG 773 ==
LOC: YASAS 13:08 → Y6N 18:17
PROVIDERS: ADMIT Allergy & Immunology; ATTEND Surgery
PROC: HZ2ZZZZ Detoxification Services for Substance Abuse Treatment (ICD-10-PCS; principal; 2022-11-21)
DX: F10.230 Alcohol dependence with withdrawal, uncomplicated (principal); F11.20 Opioid dependence, uncomplicated; F14.20 Cocaine dependence, uncomplicated; F17.210 Nicotine dependence, cigarettes, uncomplicated; F31.9 Bipolar disorder, unspecified; F19.282 Other psychoactive substance dependence with psychoactive substance-induced sleep disorder; F19.24 Other psychoactive substance dependence with psychoactive substance-induced mood disorder; Z96.653 Presence of artificial knee joint, bilateral; Z62.810 Personal history of physical and sexual abuse in childhood; Z86.69 Personal history of other diseases of the nervous system and sense organs; Z59.01 Sheltered homelessness
CPT/HCPCS: 26055; 36415; 80053; 85027; 86780; 87811; C9803-CS; U0003; U0005

== ENCOUNTER 2023-01-26 14:51 | Inpatient (IN) | payer OTHER ==
[2023-01-26 15:43] VITALS: BMI 24.3
[2023-01-26] MEDS ORDERED: IBUPROFEN 600 MG TABLET (FP) PO PRN (18:08)
[2023-01-26] MEDS ORDERED: NALOXONE HCL 0.4 MG/ML VIAL IM PRN (18:08)
[2023-01-26] MEDS ORDERED: IBUPROFEN 400 MG TABLET (FP) PO PRN (18:08)
[2023-01-26] MEDS ORDERED: POLYETHYLENE GLYCOL (HEALTHYLAX) 3350 17 GM PACKET PO PRN (18:08)
[2023-01-26] MEDS ORDERED: NALOXONE HCL (KLOXXADO) 8 MG SPRAY NS PRN (18:08)
[2023-01-26] MEDS ORDERED: BENZONATATE 200 MG CAPSULE PO PRN (18:08)
[2023-01-26] MEDS ORDERED: BENZOCAINE/MENTHOL (CHLORASEPTIC ) LOZENGE MM PRN (18:08)
[2023-01-26] MEDS ORDERED: ONDANSETRON *ODT* 4 MG TABLET SL PRN (18:08)
[2023-01-26] MEDS ORDERED: P-EPHED 60MG/TRIPROLIDI 2.5MG TABLET PO PRN (18:08)
[2023-01-26] MEDS ORDERED: METHOCARBAMOL 500 MG TABLET PO PRN (18:08)
[2023-01-26] MEDS ORDERED: LOPERAMIDE HCL 2 MG CAPSULE PO PRN (18:08)
[2023-01-26] MEDS ORDERED: guaiFENesin 600 MG TABLET.ER (FP) PO PRN (18:08)
[2023-01-26] MEDS ORDERED: hydrOXYzine PAMOATE 25 MG CAPSULE (FP) PO PRN (18:08)
[2023-01-26] MEDS ORDERED: MAGNESIUM HYDROX 2400MG/30ML ORAL SUSPENSION 30 ML CUP PO PRN (18:08)
[2023-01-26] MEDS ORDERED: DICYCLOMINE HCL 10 MG CAPSULE PO PRN (18:08)
[2023-01-26] MEDS ORDERED: MELATONIN 5 MG TABLETS PO PRN (18:08)
[2023-01-26] MEDS ORDERED: MAG HYDROX/AL HYDROX/SIMETH 30 ML UNIT-DOSE CUP PO PRN (18:08)
[2023-01-26] MEDS ORDERED: ACETAMINOPHEN 325 MG TABLET (FP) PO PRN (18:08)
[2023-01-26] MEDS ORDERED: BISMUTH SUBSALICYLATE 524 MG/30 ML PO PRN (18:08)
[2023-01-26] MEDS ORDERED: diazePAM 5 MG TABLET PO PRN (18:11)
[2023-01-26] MEDS ORDERED: GABAPENTIN 300 MG CAPSULE PO ONE (22:00)
[2023-01-26] MEDS: THIAMINE HCL 100 MG TABLET (FP) PO SCH (22:19)
[2023-01-27] MEDS ORDERED: diazePAM 5 MG TABLET PO PRN (09:14)
[2023-01-27] MEDS: PRENATAL VITAMINS W/ FOLIC ACID TABLET (FP) PO SCH (10:08)
[2023-01-27] MEDS: diazePAM 5 MG TABLET PO SCH ×3 (10:08→22:31)
[2023-01-27 11:57] LABS: HEMATOCRIT 39.5 % (35.4-49); HEMOGLOBIN 13.2 GM/dL (11.7-16.9); MCH 29.4 pg (25.7-33.7); MCHC 33.3 g/dl (32.0-35.9); MEAN CELL VOLUME 88.3 fl (80-96); PLATELET COUNT 309 10^3/uL (134-434); RBC 4.47 M/mm3 (4.00-5.60); RDW 13.7 % (11.9-15.9); WHITE BLOOD COUNT 5.5 K/mm3 (4.0-10.0)
[2023-01-27 12:06] LABS: POTASSIUM 4.4 mmol/L (3.5-5.1)
[2023-01-27 12:12] LABS: ALBUMIN 3.6 g/dl (3.4-5.0); CALCIUM 9.5 mg/dL (8.5-10.1)
[2023-01-27 12:15] LABS: CREATININE 0.9 mg/dL (0.55-1.3)
[2023-01-27 12:16] LABS: BILIRUBIN,TOTAL 0.7 mg/dL (0.2-1); TOT PROT 6.8 g/dl (6.4-8.2)
[2023-01-27] MEDS: GABAPENTIN 100 MG CAPSULE PO SCH ×2 (13:29→22:32)
[2023-01-27] MEDS ORDERED: traZODone HCL 100 MG TABLET (FP) PO SCH (22:00)
[2023-01-27] MEDS ORDERED: OLANZapine 2.5 MG TABLET PO SCH (22:00)
[2023-01-27] MEDS: THIAMINE HCL 100 MG TABLET (FP) PO SCH (22:32)
[2023-01-28] MEDS: diazePAM 5 MG TABLET PO SCH ×2 (05:48→10:21)
[2023-01-28] MEDS: GABAPENTIN 100 MG CAPSULE PO SCH ×2 (05:48→14:55)
[2023-01-28] MEDS: PRENATAL VITAMINS W/ FOLIC ACID TABLET (FP) PO SCH (10:21)
[2023-01-28 14:07] VITALS: RESP 16
[2023-01-28 17:43] VITALS: BP 108/55; PULSE 81; TEMP 98.6
[2023-01-29] MEDS ORDERED: diazePAM 5 MG TABLET PO SCH (06:00)
[2023-01-30] MEDS ORDERED: diazePAM 5 MG TABLET PO SCH (06:00)
[2023-01-31] MEDS ORDERED: diazePAM 5 MG TABLET PO ONE (06:00)
== END 2023-01-28 17:29 | disposition left against medical advice (07) | DRG 770 ==
LOC: YASAS 14:51 → Y3N 18:16
PROVIDERS: ADMIT Allergy & Immunology; ATTEND Surgery
PROC: HZ2ZZZZ Detoxification Services for Substance Abuse Treatment (ICD-10-PCS; principal; 2023-01-26)
DX: F10.230 Alcohol dependence with withdrawal, uncomplicated (principal); F14.20 Cocaine dependence, uncomplicated; F17.210 Nicotine dependence, cigarettes, uncomplicated; F31.9 Bipolar disorder, unspecified; Z62.810 Personal history of physical and sexual abuse in childhood; Z96.653 Presence of artificial knee joint, bilateral
CPT/HCPCS: 36415; 80053; 83036; 85027; 86780; 87635; 87811

== ENCOUNTER 2023-03-18 15:22 | Inpatient (IN) | payer OTHER ==
[2023-03-18 16:25] VITALS: BMI 21.4
[2023-03-18] MEDS ORDERED: IBUPROFEN 400 MG TABLET (FP) PO PRN (17:22)
[2023-03-18] MEDS ORDERED: MAGNESIUM HYDROX 2400MG/30ML ORAL SUSPENSION 30 ML CUP PO PRN (17:22)
[2023-03-18] MEDS ORDERED: NALOXONE HCL (KLOXXADO) 8 MG SPRAY NS PRN (17:22)
[2023-03-18] MEDS ORDERED: ACETAMINOPHEN 325 MG TABLET (FP) PO PRN (17:22)
[2023-03-18] MEDS ORDERED: MAG HYDROX/AL HYDROX/SIMETH 30 ML UNIT-DOSE CUP PO PRN (17:22)
[2023-03-18] MEDS ORDERED: NALOXONE HCL 0.4 MG/ML VIAL IM PRN (17:22)
[2023-03-18] MEDS ORDERED: BENZONATATE 200 MG CAPSULE PO PRN (17:22)
[2023-03-18] MEDS ORDERED: LORazepam 1 MG TABLET PO PRN (17:22)
[2023-03-18] MEDS ORDERED: POLYETHYLENE GLYCOL (HEALTHYLAX) 3350 17 GM PACKET PO PRN (17:22)
[2023-03-18] MEDS ORDERED: LOPERAMIDE HCL 2 MG CAPSULE PO PRN (17:22)
[2023-03-18] MEDS ORDERED: ONDANSETRON *ODT* 4 MG TABLET SL PRN (17:22)
[2023-03-18] MEDS ORDERED: NICOTINE POLACRILEX 2 MG GUM BUC PRN (17:22)
[2023-03-18] MEDS ORDERED: DICYCLOMINE HCL 10 MG CAPSULE PO PRN (17:22)
[2023-03-18] MEDS ORDERED: BISMUTH SUBSALICYLATE 524 MG/30 ML PO PRN (17:22)
[2023-03-18] MEDS ORDERED: BENZOCAINE/MENTHOL (CHLORASEPTIC ) LOZENGE MM PRN (17:22)
[2023-03-18] MEDS ORDERED: guaiFENesin 600 MG TABLET.ER (FP) PO PRN (17:22)
[2023-03-18] MEDS: MELATONIN 5 MG TABLETS PO SCH (22:25)
[2023-03-18] MEDS: LORazepam 2 MG TABLET PO SCH (22:25)
[2023-03-18] MEDS: THIAMINE HCL 100 MG TABLET (FP) PO SCH (22:25)
[2023-03-19] MEDS: LORazepam 2 MG TABLET PO SCH ×4 (05:32→22:23)
[2023-03-19] MEDS: IBUPROFEN 600 MG TABLET (FP) PO PRN (05:33)
[2023-03-19] MEDS: hydrOXYzine PAMOATE 25 MG CAPSULE (FP) PO PRN (10:38)
[2023-03-19] MEDS: PRENATAL VITAMINS W/ FOLIC ACID TABLET (FP) PO SCH (10:38)
[2023-03-19] MEDS: METHOCARBAMOL 500 MG TABLET PO PRN (10:38)
[2023-03-19] MEDS: NICOTINE 14 MG/24 HOURS TOPICAL PATCH TD SCH (10:39)
[2023-03-19 13:25] VITALS: RESP 18
[2023-03-19 14:02] LABS: HEMATOCRIT 37.5 % (35.4-49); HEMOGLOBIN 12.1 GM/dL (11.7-16.9); MCH 29.2 pg (25.7-33.7); MCHC 32.3 g/dl (32.0-35.9); MEAN CELL VOLUME 90.4 fl (80-96); MEAN PLT VOLUME 9.5 fl (7.5-11.1); PLATELET COUNT 325 10^3/uL (134-434); RBC 4.15 M/mm3 (4.00-5.60); WHITE BLOOD COUNT 4.4 K/mm3 (4.0-10.0)
[2023-03-19 14:04] LABS: ALBUMIN 3.2 g/dl (3.4-5.0); BLOOD UREA NITROGEN 14.3 mg/dL (7-18)
[2023-03-19 14:07] LABS: CREATININE 0.9 mg/dL (0.55-1.3)
[2023-03-19 14:08] LABS: BILIRUBIN,TOTAL 0.2 mg/dL (0.2-1)
[2023-03-19] MEDS: THIAMINE HCL 100 MG TABLET (FP) PO SCH (22:23)
[2023-03-19] MEDS: MELATONIN 5 MG TABLETS PO SCH (22:24)
[2023-03-20] MEDS: IBUPROFEN 600 MG TABLET (FP) PO PRN (05:27)
[2023-03-20] MEDS: LORazepam 1 MG TABLET PO SCH ×2 (05:28→10:40)
[2023-03-20 06:32] VITALS: TEMP 97.8
[2023-03-20 10:01] VITALS: BP 133/69; PULSE 68
[2023-03-20] MEDS: NICOTINE 14 MG/24 HOURS TOPICAL PATCH TD SCH (10:40)
[2023-03-20] MEDS: PRENATAL VITAMINS W/ FOLIC ACID TABLET (FP) PO SCH (10:40)
[2023-03-20] MEDS: METHOCARBAMOL 500 MG TABLET PO PRN (10:40)
[2023-03-20] MEDS: hydrOXYzine PAMOATE 25 MG CAPSULE (FP) PO PRN (10:40)
[2023-03-21] MEDS ORDERED: LORazepam 0.5 MG TABLET PO PRN
[2023-03-21] MEDS ORDERED: LORazepam 0.5 MG TABLET PO SCH (05:00)
[2023-03-22] MEDS ORDERED: LORazepam 0.5 MG TABLET PO ONE (05:00)
== END 2023-03-20 13:00 | disposition left against medical advice (07) | DRG 770 ==
LOC: YASAS 15:22 → Y6N 17:47
PROVIDERS: ADMIT Allergy & Immunology; ATTEND Allergy & Immunology
PROC: HZ2ZZZZ Detoxification Services for Substance Abuse Treatment (ICD-10-PCS; principal; 2023-03-18)
DX: F10.230 Alcohol dependence with withdrawal, uncomplicated (principal); F14.20 Cocaine dependence, uncomplicated; F17.213 Nicotine dependence, cigarettes, with withdrawal; F32.A Depression, unspecified; R73.09 Other abnormal glucose; K70.30 Alcoholic cirrhosis of liver without ascites; R01.1 Cardiac murmur, unspecified; M17.0 Bilateral primary osteoarthritis of knee; Z91.013 Allergy to seafood; Z91.018 Allergy to other foods
CPT/HCPCS: 36415; 80053; 85027; 86780; 87635

== ENCOUNTER 2023-04-23 14:20 | Inpatient (IN) | payer OTHER ==
[2023-04-23 15:54] VITALS: BMI 22.6
[2023-04-23] MEDS ORDERED: IBUPROFEN 400 MG TABLET (FP) PO PRN (18:55)
[2023-04-23] MEDS ORDERED: NALOXONE HCL (KLOXXADO) 8 MG SPRAY NS PRN (18:55)
[2023-04-23] MEDS ORDERED: ONDANSETRON *ODT* 4 MG TABLET SL PRN (18:55)
[2023-04-23] MEDS ORDERED: BENZOCAINE/MENTHOL (CHLORASEPTIC ) LOZENGE MM PRN (18:55)
[2023-04-23] MEDS ORDERED: guaiFENesin 600 MG TABLET.ER (FP) PO PRN (18:55)
[2023-04-23] MEDS ORDERED: MAGNESIUM HYDROX 2400MG/30ML ORAL SUSPENSION 30 ML CUP PO PRN (18:55)
[2023-04-23] MEDS ORDERED: DICYCLOMINE HCL 10 MG CAPSULE PO PRN (18:55)
[2023-04-23] MEDS ORDERED: LOPERAMIDE HCL 2 MG CAPSULE PO PRN (18:55)
[2023-04-23] MEDS ORDERED: NALOXONE HCL 0.4 MG/ML VIAL IM PRN (18:55)
[2023-04-23] MEDS ORDERED: BISMUTH SUBSALICYLATE 524 MG/30 ML PO PRN (18:55)
[2023-04-23] MEDS ORDERED: MAG HYDROX/AL HYDROX/SIMETH 30 ML UNIT-DOSE CUP PO PRN (18:55)
[2023-04-23] MEDS ORDERED: IBUPROFEN 600 MG TABLET (FP) PO PRN (18:55)
[2023-04-23] MEDS ORDERED: POLYETHYLENE GLYCOL (HEALTHYLAX) 3350 17 GM PACKET PO PRN (18:55)
[2023-04-23] MEDS ORDERED: BENZONATATE 200 MG CAPSULE PO PRN (18:55)
[2023-04-23] MEDS ORDERED: LORazepam 1 MG TABLET PO PRN (18:55)
[2023-04-23] MEDS ORDERED: ACETAMINOPHEN 325 MG TABLET (FP) PO PRN (18:55)
[2023-04-23] MEDS ORDERED: MELATONIN 5 MG TABLETS PO SCH ×2 (22:00)
[2023-04-23] MEDS: LORazepam 2 MG TABLET PO SCH (22:24)
[2023-04-23] MEDS: THIAMINE HCL 100 MG TABLET (FP) PO SCH (22:24)
[2023-04-24] MEDS: LORazepam 2 MG TABLET PO SCH ×4 (05:15→22:09)
[2023-04-24] MEDS: hydrOXYzine PAMOATE 25 MG CAPSULE (FP) PO PRN (10:17)
[2023-04-24] MEDS: PRENATAL VITAMINS W/ FOLIC ACID TABLET (FP) PO SCH (10:17)
[2023-04-24] MEDS: METHOCARBAMOL 500 MG TABLET PO PRN (10:17)
[2023-04-24 10:20] LABS: POTASSIUM 4.7 mmol/L (3.5-5.1)
[2023-04-24 10:24] LABS: ALBUMIN 3.4 g/dl (3.4-5.0); BLOOD UREA NITROGEN 14.9 mg/dL (7-18); CALCIUM 9.1 mg/dL (8.5-10.1)
[2023-04-24 10:27] LABS: CREATININE 0.7 mg/dL (0.55-1.3)
[2023-04-24 10:28] LABS: HEMATOCRIT 39.6 % (35.4-49); HEMOGLOBIN 12.8 GM/dL (11.7-16.9); MCH 28.8 pg (25.7-33.7); MCHC 32.2 g/dl (32.0-35.9); MEAN CELL VOLUME 89.5 fl (80-96); MEAN PLT VOLUME 9.3 fl (7.5-11.1); PLATELET COUNT 385 10^3/uL (134-434); RBC 4.43 M/mm3 (4.00-5.60); WHITE BLOOD COUNT 7.2 K/mm3 (4.0-10.0)
[2023-04-24 10:29] LABS: BILIRUBIN,TOTAL 0.6 mg/dL (0.2-1); TOT PROT 6.9 g/dl (6.4-8.2)
[2023-04-24] MEDS: GABAPENTIN 100 MG CAPSULE PO SCH ×2 (13:44→22:09)
[2023-04-24] MEDS ORDERED: GABAPENTIN 300 MG CAPSULE PO SCH (14:00)
[2023-04-24] MEDS ORDERED: OLANZapine 2.5 MG TABLET PO SCH (22:00)
[2023-04-24] MEDS: traZODone HCL 50 MG TABLET (FP) PO SCH (22:09)
[2023-04-24] MEDS: THIAMINE HCL 100 MG TABLET (FP) PO SCH (22:09)
[2023-04-24] MEDS: OLANZapine 5 MG TABLET PO SCH (22:55)
[2023-04-25] MEDS: GABAPENTIN 100 MG CAPSULE PO SCH ×3 (05:24→22:06)
[2023-04-25] MEDS: LORazepam 1 MG TABLET PO SCH ×4 (05:24→22:06)
[2023-04-25] MEDS: METHOCARBAMOL 500 MG TABLET PO PRN (05:27)
[2023-04-25] MEDS: PRENATAL VITAMINS W/ FOLIC ACID TABLET (FP) PO SCH (10:07)
[2023-04-25] MEDS: THIAMINE HCL 100 MG TABLET (FP) PO SCH (22:06)
[2023-04-25] MEDS: traZODone HCL 50 MG TABLET (FP) PO SCH (22:06)
[2023-04-25] MEDS: OLANZapine 5 MG TABLET PO SCH (22:07)
[2023-04-26] MEDS ORDERED: LORazepam 0.5 MG TABLET PO PRN
[2023-04-26] MEDS: LORazepam 0.5 MG TABLET PO SCH ×4 (05:20→22:10)
[2023-04-26] MEDS: GABAPENTIN 100 MG CAPSULE PO SCH ×3 (05:20→22:10)
[2023-04-26] MEDS: METHOCARBAMOL 500 MG TABLET PO PRN ×2 (05:22→22:12)
[2023-04-26] MEDS: PRENATAL VITAMINS W/ FOLIC ACID TABLET (FP) PO SCH (10:13)
[2023-04-26] MEDS: hydrOXYzine PAMOATE 25 MG CAPSULE (FP) PO PRN (10:13)
[2023-04-26] MEDS: THIAMINE HCL 100 MG TABLET (FP) PO SCH (22:10)
[2023-04-26] MEDS: traZODone HCL 50 MG TABLET (FP) PO SCH (22:10)
[2023-04-26] MEDS: OLANZapine 5 MG TABLET PO SCH (23:08)
[2023-04-27] MEDS ORDERED: LORazepam 0.5 MG TABLET PO ONE (05:00)
[2023-04-27] MEDS: GABAPENTIN 100 MG CAPSULE PO SCH (05:08)
[2023-04-27 09:45] VITALS: BP 112/65; PULSE 75; RESP 16; TEMP 98.1
[2023-04-27] MEDS: hydrOXYzine PAMOATE 25 MG CAPSULE (FP) PO PRN (10:12)
[2023-04-27] MEDS: PRENATAL VITAMINS W/ FOLIC ACID TABLET (FP) PO SCH (10:12)
== END 2023-04-27 11:40 | disposition other institution (70) | DRG 774 ==
LOC: YASAS 14:20 → Y6N 18:52
PROVIDERS: ADMIT Allergy & Immunology; ATTEND Surgery
PROC: HZ2ZZZZ Detoxification Services for Substance Abuse Treatment (ICD-10-PCS; principal; 2023-04-23)
DX: F10.230 Alcohol dependence with withdrawal, uncomplicated (principal); F14.20 Cocaine dependence, uncomplicated; F17.210 Nicotine dependence, cigarettes, uncomplicated; F31.9 Bipolar disorder, unspecified; F19.282 Other psychoactive substance dependence with psychoactive substance-induced sleep disorder; Z59.00 Homelessness unspecified
CPT/HCPCS: 36415; 80053; 85027; 86780; 87635

== ENCOUNTER 2023-06-24 20:58 | Inpatient (IN) | payer OTHER ==
[2023-06-24 22:21] VITALS: BMI 24.0
[2023-06-24] MEDS ORDERED: guaiFENesin 600 MG TABLET.ER (FP) PO PRN (23:04)
[2023-06-24] MEDS ORDERED: POLYETHYLENE GLYCOL (HEALTHYLAX) 3350 17 GM PACKET PO PRN (23:04)
[2023-06-24] MEDS ORDERED: BENZONATATE 200 MG CAPSULE PO PRN (23:04)
[2023-06-24] MEDS ORDERED: BISMUTH SUBSALICYLATE 524 MG/30 ML PO PRN (23:04)
[2023-06-24] MEDS ORDERED: LOPERAMIDE HCL 2 MG CAPSULE PO PRN (23:04)
[2023-06-24] MEDS ORDERED: DICYCLOMINE HCL 10 MG CAPSULE PO PRN (23:04)
[2023-06-24] MEDS ORDERED: IBUPROFEN 400 MG TABLET (FP) PO PRN (23:04)
[2023-06-24] MEDS ORDERED: hydrOXYzine PAMOATE 25 MG CAPSULE (FP) PO PRN (23:04)
[2023-06-24] MEDS ORDERED: IBUPROFEN 600 MG TABLET (FP) PO PRN (23:04)
[2023-06-24] MEDS ORDERED: ACETAMINOPHEN 325 MG TABLET (FP) PO PRN (23:04)
[2023-06-24] MEDS ORDERED: BENZOCAINE/MENTHOL (CHLORASEPTIC ) LOZENGE MM PRN (23:04)
[2023-06-24] MEDS ORDERED: ONDANSETRON *ODT* 4 MG TABLET SL PRN (23:04)
[2023-06-24] MEDS ORDERED: MAG HYDROX/AL HYDROX/SIMETH 30 ML UNIT-DOSE CUP PO PRN (23:04)
[2023-06-24] MEDS ORDERED: MAGNESIUM HYDROX 2400MG/30ML ORAL SUSPENSION 30 ML CUP PO PRN (23:04)
[2023-06-25] MEDS: diazePAM 5 MG TABLET PO SCH ×5 (00:21→22:19)
[2023-06-25] MEDS: diazePAM 5 MG TABLET PO PRN (00:27)
[2023-06-25] MEDS: PRENATAL VITAMINS W/ FOLIC ACID TABLET (FP) PO SCH (10:20)
[2023-06-25] MEDS: METHOCARBAMOL 500 MG TABLET PO PRN (10:20)
[2023-06-25 15:58] LABS: CHLORIDE 102 mmol/L (98-107); POTASSIUM 3.9 mmol/L (3.5-5.1); SODIUM 137 mmol/L (136-145)
[2023-06-25 16:03] LABS: ALBUMIN 3.7 g/dl (3.4-5.0); ANION GAP 7 mmol/L (4-13); BLOOD UREA NITROGEN 20.4 mg/dL (7-18); CALCIUM 8.8 mg/dL (8.5-10.1); CO2 28 mmol/L (21-32); GLUCOSE,RANDOM 95 mg/dL (74-106); HEMATOCRIT 38.7 % (35.4-49); HEMOGLOBIN 12.4 GM/dL (11.7-16.9); MCH 28.8 pg (25.7-33.7); MCHC 32.1 g/dl (32.0-35.9); MEAN CELL VOLUME 89.7 fl (80-96); MEAN PLT VOLUME 9.1 fl (7.5-11.1); PLATELET COUNT 281 10^3/uL (134-434); RBC 4.31 M/mm3 (4.00-5.60); RDW 14.4 % (11.9-15.9); WHITE BLOOD COUNT 5.6 K/mm3 (4.0-10.0)
[2023-06-25 16:06] LABS: SGOT/AST 19 U/L (15-37); SGPT/ALT 17 U/L (13-61)
[2023-06-25 16:07] LABS: CREATININE 0.7 mg/dL (0.55-1.3)
[2023-06-25 16:08] LABS: TOT PROT 6.9 g/dl (6.4-8.2)
[2023-06-25 16:09] LABS: ALK PHOS 102 U/L (45-117)
[2023-06-25 16:10] LABS: BILIRUBIN,TOTAL 1.4 mg/dL (0.2-1)
[2023-06-25] MEDS: MELATONIN 5 MG TABLETS PO SCH (22:19)
[2023-06-25] MEDS: THIAMINE HCL 100 MG TABLET (FP) PO SCH (22:19)
[2023-06-26] MEDS: diazePAM 5 MG TABLET PO SCH ×2 (05:31→17:13)
[2023-06-26] MEDS: NICOTINE POLACRILEX 2 MG GUM BUC PRN ×2 (10:18→13:02)
[2023-06-26] MEDS: METHOCARBAMOL 500 MG TABLET PO PRN ×2 (10:18→22:19)
[2023-06-26] MEDS: PRENATAL VITAMINS W/ FOLIC ACID TABLET (FP) PO SCH (10:18)
[2023-06-26] MEDS: diazePAM 5 MG TABLET PO PRN (13:01)
[2023-06-26] MEDS: MELATONIN 5 MG TABLETS PO SCH (22:19)
[2023-06-26] MEDS: THIAMINE HCL 100 MG TABLET (FP) PO SCH (22:19)
[2023-06-27] MEDS ORDERED: diazePAM 5 MG TABLET PO ONE (06:00)
[2023-06-27 09:34] VITALS: BP 105/55; PULSE 68; RESP 16; TEMP 98.9
[2023-06-27] MEDS: PRENATAL VITAMINS W/ FOLIC ACID TABLET (FP) PO SCH (10:14)
== END 2023-06-27 12:50 | disposition home or self-care (01) | DRG 774 ==
LOC: YASAS 20:58 → Y6N 23:48
PROVIDERS: ADMIT Allergy & Immunology; ATTEND Surgery
PROC: HZ2ZZZZ Detoxification Services for Substance Abuse Treatment (ICD-10-PCS; principal; 2023-06-24)
DX: F10.230 Alcohol dependence with withdrawal, uncomplicated (principal); F14.20 Cocaine dependence, uncomplicated; F17.210 Nicotine dependence, cigarettes, uncomplicated; F31.9 Bipolar disorder, unspecified
CPT/HCPCS: 36415; 80053; 80307; 85027; 86780; 87635

== ENCOUNTER 2023-07-27 18:40 | Inpatient (IN) | payer OTHER ==
[2023-07-27 21:18] VITALS: BMI 22.3
[2023-07-27] MEDS ORDERED: COLLOIDAL OATMEAL 1 BAR EACH TP PRN (23:13)
[2023-07-27] MEDS ORDERED: hydrOXYzine PAMOATE 25 MG CAPSULE (FP) PO PRN (23:13)
[2023-07-27] MEDS ORDERED: NALOXONE HCL 0.4 MG/ML VIAL IM PRN (23:13)
[2023-07-27] MEDS ORDERED: ACETAMINOPHEN 325 MG TABLET (FP) PO PRN (23:13)
[2023-07-27] MEDS ORDERED: BENZONATATE 200 MG CAPSULE PO PRN (23:13)
[2023-07-27] MEDS ORDERED: LOPERAMIDE HCL 2 MG CAPSULE PO PRN (23:13)
[2023-07-27] MEDS ORDERED: MAG HYDROX/AL HYDROX/SIMETH 30 ML UNIT-DOSE CUP PO PRN (23:13)
[2023-07-27] MEDS ORDERED: NALOXONE HCL (KLOXXADO) 8 MG SPRAY NS PRN (23:13)
[2023-07-27] MEDS ORDERED: POLYETHYLENE GLYCOL (HEALTHYLAX) 3350 17 GM PACKET PO PRN (23:13)
[2023-07-27] MEDS ORDERED: guaiFENesin 600 MG TABLET.ER (FP) PO PRN (23:13)
[2023-07-27] MEDS ORDERED: IBUPROFEN 400 MG TABLET (FP) PO PRN (23:13)
[2023-07-27] MEDS ORDERED: MAGNESIUM HYDROX 2400MG/30ML ORAL SUSPENSION 30 ML CUP PO PRN (23:13)
[2023-07-27] MEDS ORDERED: BENZOCAINE/MENTHOL (CHLORASEPTIC ) LOZENGE MM PRN (23:13)
[2023-07-28] MEDS: MELATONIN 5 MG TABLETS PO SCH ×2 (00:05→21:15)
[2023-07-28] MEDS: DIVALPROEX SODIUM 250 MG TABLET E.C. PO SCH ×2 (10:33→21:15)
[2023-07-28] MEDS: PRENATAL VITAMINS W/ FOLIC ACID TABLET (FP) PO SCH (10:33)
[2023-07-28] MEDS: NICOTINE POLACRILEX 2 MG GUM BUC PRN ×4 (10:34→21:16)
[2023-07-28] MEDS: NICOTINE 21 MG/24 HOURS TOPICAL PATCH TD SCH (10:34)
[2023-07-28 12:24] LABS: HEMATOCRIT 35.3 % (35.4-49); HEMOGLOBIN 11.7 GM/dL (11.7-16.9); MCH 28.9 pg (25.7-33.7); MCHC 33.1 g/dl (32.0-35.9); MEAN CELL VOLUME 87.2 fl (80-96); MEAN PLT VOLUME 9.3 fl (7.5-11.1); PLATELET COUNT 285 10^3/uL (134-434); RBC 4.04 M/mm3 (4.00-5.60); RDW 14.9 % (11.9-15.9); WHITE BLOOD COUNT 5.1 K/mm3 (4.0-10.0)
[2023-07-28 12:52] LABS: CHLORIDE 105 mmol/L (98-107); POTASSIUM 4.2 mmol/L (3.5-5.1); SODIUM 137 mmol/L (136-145)
[2023-07-28 12:56] LABS: ALBUMIN 3.4 g/dl (3.4-5.0); ANION GAP 7 mmol/L (4-13); BLOOD UREA NITROGEN 13.2 mg/dL (7-18); CO2 25 mmol/L (21-32); GLUCOSE,RANDOM 122 mg/dL (74-106)
[2023-07-28 12:59] LABS: CREATININE 0.7 mg/dL (0.55-1.3); SGOT/AST 18 U/L (15-37); SGPT/ALT 23 U/L (13-61)
[2023-07-28 13:00] LABS: BILIRUBIN,TOTAL 0.5 mg/dL (0.2-1); TOT PROT 6.6 g/dl (6.4-8.2)
[2023-07-28 13:02] LABS: ALK PHOS 86 U/L (45-117)
[2023-07-28] MEDS: IBUPROFEN 600 MG TABLET (FP) PO PRN ×2 (13:27→21:16)
[2023-07-28 13:31] LABS: EPI CELLS 10 /uL (0-25.1); HYALINE CASTS 1 /uL (0-3.1); URINE APPEARANCE CLOUDY; URINE BACTERIA 69 /uL (0-1359); URINE BILIRUBIN NEGATIVE (NEGATIVE); URINE COLOR DK YELLOW; URINE GLUCOSE (UA) NEGATIVE (NEGATIVE); URINE KETONE TRACE (NEGATIVE); URINE LEUK ESTERASE TRACE (NEGATIVE); URINE NITRITE NEGATIVE (NEGATIVE); URINE PROTEIN 1+ (NEGATIVE); URINE RBC 49 /uL (0-23.9); URINE WBC 41 /uL (0-25.8)
[2023-07-28 14:04] LABS: URINE CRYSTALS CA OXALATE FEW /hpf
[2023-07-28 19:08] LABS: SYPHILIS W/ RPR CONF NON-REACTIVE (NONREACTIVE)
[2023-07-28] MEDS: OLANZapine 2.5 MG TABLET PO SCH (21:15)
[2023-07-28] MEDS: THIAMINE HCL 100 MG TABLET (FP) PO SCH (21:15)
[2023-07-28] MEDS ORDERED: traZODone HCL 100 MG TABLET (FP) PO SCH (22:00)
[2023-07-29] MEDS ORDERED: BUPRENORPHINE HCL 150 MCG, BUPRENORPHINE HCL 75 MCG BC PRN (09:57)
[2023-07-29] MEDS: NICOTINE 21 MG/24 HOURS TOPICAL PATCH TD SCH (10:15)
[2023-07-29] MEDS: PRENATAL VITAMINS W/ FOLIC ACID TABLET (FP) PO SCH (10:15)
[2023-07-29] MEDS: DIVALPROEX SODIUM 250 MG TABLET E.C. PO SCH ×2 (10:15→21:02)
[2023-07-29] MEDS: NICOTINE POLACRILEX 2 MG GUM BUC PRN ×4 (10:16→21:04)
[2023-07-29] MEDS ORDERED: BUPRENORPHINE HCL 150 MCG, BUPRENORPHINE HCL 75 MCG BC ONE (10:30)
[2023-07-29] MEDS: BACLOFEN 10 MG TABLET (FP) PO SCH ×2 (13:52→21:02)
[2023-07-29] MEDS: MELATONIN 5 MG TABLETS PO SCH (21:02)
[2023-07-29] MEDS: THIAMINE HCL 100 MG TABLET (FP) PO SCH (21:02)
[2023-07-29] MEDS: OLANZapine 2.5 MG TABLET PO SCH (21:02)
[2023-07-29] MEDS: traZODone HCL 50 MG TABLET (FP) PO SCH (21:03)
[2023-07-30] MEDS ORDERED: BUPRENORPHINE HCL 150 MCG, BUPRENORPHINE HCL 75 MCG BC PRN
[2023-07-30] MEDS: BACLOFEN 10 MG TABLET (FP) PO SCH ×3 (06:07→21:21)
[2023-07-30] MEDS: BUPRENORPHINE HCL 150 MCG, BUPRENORPHINE HCL 75 MCG BC SCH ×2 (06:07→18:24)
[2023-07-30] MEDS: DIVALPROEX SODIUM 250 MG TABLET E.C. PO SCH ×2 (09:40→21:22)
[2023-07-30] MEDS: PRENATAL VITAMINS W/ FOLIC ACID TABLET (FP) PO SCH (09:40)
[2023-07-30] MEDS: IBUPROFEN 600 MG TABLET (FP) PO PRN (09:41)
[2023-07-30] MEDS: NICOTINE 21 MG/24 HOURS TOPICAL PATCH TD SCH (09:42)
[2023-07-30] MEDS: NICOTINE POLACRILEX 2 MG GUM BUC PRN ×3 (09:42→18:33)
[2023-07-30] MEDS: THIAMINE HCL 100 MG TABLET (FP) PO SCH (21:21)
[2023-07-30] MEDS: MELATONIN 5 MG TABLETS PO SCH (21:21)
[2023-07-30] MEDS: traZODone HCL 50 MG TABLET (FP) PO SCH (21:21)
[2023-07-30] MEDS: OLANZapine 2.5 MG TABLET PO SCH (21:22)
[2023-07-31] MEDS: BUPRENORPHINE HCL 450 MCG FILM BC SCH ×2 (06:29→20:48)
[2023-07-31] MEDS: BACLOFEN 10 MG TABLET (FP) PO SCH ×3 (06:29→21:51)
[2023-07-31] MEDS: PRENATAL VITAMINS W/ FOLIC ACID TABLET (FP) PO SCH (09:56)
[2023-07-31] MEDS: DIVALPROEX SODIUM 250 MG TABLET E.C. PO SCH ×2 (09:57→21:24)
[2023-07-31] MEDS: NICOTINE 21 MG/24 HOURS TOPICAL PATCH TD SCH (09:57)
[2023-07-31] MEDS: NICOTINE POLACRILEX 2 MG GUM BUC PRN ×3 (09:58→16:42)
[2023-07-31] MEDS: MELATONIN 5 MG TABLETS PO SCH (21:23)
[2023-07-31] MEDS: THIAMINE HCL 100 MG TABLET (FP) PO SCH (21:23)
[2023-07-31] MEDS: traZODone HCL 50 MG TABLET (FP) PO SCH (21:23)
[2023-07-31] MEDS: OLANZapine 2.5 MG TABLET PO SCH (21:24)
[2023-08-01] MEDS: BACLOFEN 10 MG TABLET (FP) PO SCH ×3 (06:55→21:11)
[2023-08-01] MEDS: BUPRENORPHINE/NALOXONE 4 MG/1 MG FILM PACKET SL SCH ×2 (06:55→17:54)
[2023-08-01] MEDS: PRENATAL VITAMINS W/ FOLIC ACID TABLET (FP) PO SCH (09:52)
[2023-08-01] MEDS: DIVALPROEX SODIUM 250 MG TABLET E.C. PO SCH ×2 (09:52→21:12)
[2023-08-01] MEDS: NICOTINE 21 MG/24 HOURS TOPICAL PATCH TD SCH (09:52)
[2023-08-01] MEDS: NICOTINE POLACRILEX 2 MG GUM BUC PRN ×4 (09:53→21:12)
[2023-08-01] MEDS: MELATONIN 5 MG TABLETS PO SCH (21:11)
[2023-08-01] MEDS: traZODone HCL 50 MG TABLET (FP) PO SCH (21:11)
[2023-08-01] MEDS: OLANZapine 2.5 MG TABLET PO SCH (21:11)
[2023-08-01] MEDS: THIAMINE HCL 100 MG TABLET (FP) PO SCH (21:11)
[2023-08-02] MEDS: BACLOFEN 10 MG TABLET (FP) PO SCH ×3 (06:27→21:25)
[2023-08-02] MEDS: NICOTINE POLACRILEX 2 MG GUM BUC PRN ×5 (06:28→21:51)
[2023-08-02] MEDS: DIVALPROEX SODIUM 250 MG TABLET E.C. PO SCH ×2 (09:53→21:25)
[2023-08-02] MEDS: PRENATAL VITAMINS W/ FOLIC ACID TABLET (FP) PO SCH (09:53)
[2023-08-02] MEDS: NICOTINE 21 MG/24 HOURS TOPICAL PATCH TD SCH (09:54)
[2023-08-02] MEDS: BUPRENORPHINE/NALOXONE 4 MG/1 MG FILM PACKET SL SCH ×2 (09:54→21:25)
[2023-08-02] MEDS: THIAMINE HCL 100 MG TABLET (FP) PO SCH (21:24)
[2023-08-02] MEDS: MELATONIN 5 MG TABLETS PO SCH (21:24)
[2023-08-02] MEDS: traZODone HCL 50 MG TABLET (FP) PO SCH (21:25)
[2023-08-02] MEDS: OLANZapine 2.5 MG TABLET PO SCH (21:51)
[2023-08-03] MEDS: BACLOFEN 10 MG TABLET (FP) PO SCH ×3 (06:04→21:45)
[2023-08-03] MEDS: NICOTINE POLACRILEX 2 MG GUM BUC PRN ×4 (06:04→17:02)
[2023-08-03] MEDS: DIVALPROEX SODIUM 250 MG TABLET E.C. PO SCH ×2 (10:07→21:45)
[2023-08-03] MEDS: PRENATAL VITAMINS W/ FOLIC ACID TABLET (FP) PO SCH (10:07)
[2023-08-03] MEDS: NICOTINE 21 MG/24 HOURS TOPICAL PATCH TD SCH (10:07)
[2023-08-03] MEDS: BUPRENORPHINE/NALOXONE 2 MG/0.5 MG FILM PACKET SL SCH ×2 (11:11→21:44)
[2023-08-03] MEDS: CARBAMIDE PEROXIDE 6.5% OTIC 15 ML BOTTLE AU SCH ×2 (11:36→21:46)
[2023-08-03] MEDS: MELATONIN 5 MG TABLETS PO SCH (21:44)
[2023-08-03] MEDS: OLANZapine 2.5 MG TABLET PO SCH (21:45)
[2023-08-03] MEDS: traZODone HCL 50 MG TABLET (FP) PO SCH (21:45)
[2023-08-03] MEDS: THIAMINE HCL 100 MG TABLET (FP) PO SCH (21:46)
[2023-08-04] MEDS: BACLOFEN 10 MG TABLET (FP) PO SCH ×3 (06:58→21:07)
[2023-08-04] MEDS: NICOTINE POLACRILEX 2 MG GUM BUC PRN ×3 (06:58→12:50)
[2023-08-04] MEDS ORDERED: BUPRENORPHINE/NALOXONE 2 MG/0.5 MG FILM PACKET SL SCH (10:00)
[2023-08-04] MEDS: CARBAMIDE PEROXIDE 6.5% OTIC 15 ML BOTTLE AU SCH ×2 (10:02→21:08)
[2023-08-04] MEDS: PRENATAL VITAMINS W/ FOLIC ACID TABLET (FP) PO SCH (10:02)
[2023-08-04] MEDS: DIVALPROEX SODIUM 250 MG TABLET E.C. PO SCH ×2 (10:02→21:07)
[2023-08-04] MEDS: NICOTINE 21 MG/24 HOURS TOPICAL PATCH TD SCH (10:02)
[2023-08-04] MEDS: BUPRENORPHINE/NALOXONE 2 MG/0.5 MG FILM PACKET SL SCH ×2 (10:02→21:07)
[2023-08-04] MEDS: OLANZapine 2.5 MG TABLET PO SCH (21:07)
[2023-08-04] MEDS: THIAMINE HCL 100 MG TABLET (FP) PO SCH (21:07)
[2023-08-04] MEDS: traZODone HCL 50 MG TABLET (FP) PO SCH (21:07)
[2023-08-04] MEDS: MELATONIN 5 MG TABLETS PO SCH (21:07)
[2023-08-05] MEDS: BACLOFEN 10 MG TABLET (FP) PO SCH (06:38)
[2023-08-05] MEDS: NICOTINE POLACRILEX 2 MG GUM BUC PRN ×2 (06:38→09:21)
[2023-08-05 07:26] VITALS: TEMP 97.6
[2023-08-05] MEDS: DIVALPROEX SODIUM 250 MG TABLET E.C. PO SCH (09:18)
[2023-08-05] MEDS: CARBAMIDE PEROXIDE 6.5% OTIC 15 ML BOTTLE AU SCH (09:18)
[2023-08-05] MEDS: PRENATAL VITAMINS W/ FOLIC ACID TABLET (FP) PO SCH (09:18)
[2023-08-05] MEDS: NICOTINE 21 MG/24 HOURS TOPICAL PATCH TD SCH (09:18)
[2023-08-05] MEDS: BUPRENORPHINE/NALOXONE 2 MG/0.5 MG FILM PACKET SL SCH (09:19)
[2023-08-05 09:24] VITALS: BP 140/87; PULSE 74; RESP 18
== END 2023-08-05 09:30 | disposition home or self-care (01) | DRG 772 ==
LOC: YASAS 18:40 → Y3W 07-28 01:23
PROVIDERS: ADMIT Allergy & Immunology; ATTEND Psychiatry & Neurology Pain Medicine
PROC: HZ42ZZZ Group Counseling for Substance Abuse Treatment, Cognitive-Behavioral (ICD-10-PCS; principal; 2023-07-28)
DX: F11.20 Opioid dependence, uncomplicated (principal); F14.20 Cocaine dependence, uncomplicated; F13.20 Sedative, hypnotic or anxiolytic dependence, uncomplicated; F17.210 Nicotine dependence, cigarettes, uncomplicated; F19.280 Other psychoactive substance dependence with psychoactive substance-induced anxiety disorder; F19.282 Other psychoactive substance dependence with psychoactive substance-induced sleep disorder; F31.9 Bipolar disorder, unspecified; I10 Essential (primary) hypertension; Z59.00 Homelessness unspecified; Z56.0 Unemployment, unspecified
CPT/HCPCS: 36415; 80053; 80307; 81003; 85027; 86780; 86803; 87635; J0475

== ENCOUNTER 2023-09-12 18:43 | Inpatient (IN) | payer OTHER ==
[2023-09-12 19:20] VITALS: BMI 23.3
[2023-09-12] MEDS ORDERED: guaiFENesin 600 MG TABLET.ER (FP) PO PRN (22:40)
[2023-09-12] MEDS ORDERED: LOPERAMIDE HCL 2 MG CAPSULE PO PRN (22:40)
[2023-09-12] MEDS ORDERED: BENZONATATE 200 MG CAPSULE PO PRN (22:40)
[2023-09-12] MEDS ORDERED: POLYETHYLENE GLYCOL (HEALTHYLAX) 3350 17 GM PACKET PO PRN (22:40)
[2023-09-12] MEDS ORDERED: MAGNESIUM HYDROX 2400MG/30ML ORAL SUSPENSION 30 ML CUP PO PRN (22:40)
[2023-09-12] MEDS ORDERED: IBUPROFEN 400 MG TABLET (FP) PO PRN (22:40)
[2023-09-12] MEDS ORDERED: DOCUSATE SODIUM 100 MG CAPSULE (FP) PO PRN (22:40)
[2023-09-12] MEDS ORDERED: MAG HYDROX/AL HYDROX/SIMETH 30 ML UNIT-DOSE CUP PO PRN (22:40)
[2023-09-12] MEDS ORDERED: ACETAMINOPHEN 325 MG TABLET (FP) PO PRN (22:40)
[2023-09-12] MEDS ORDERED: BENZOCAINE/MENTHOL (CHLORASEPTIC ) LOZENGE MM PRN (22:40)
[2023-09-12] MEDS: MELATONIN 5 MG TABLETS PO SCH (23:49)
[2023-09-13] MEDS ORDERED: TUBERCULIN PPD 5 TU/0.1ML VIAL ID ONE (08:43)
[2023-09-13] MEDS: TUBERCULIN PPD 5 TU/0.1ML VIAL ID ONE (08:44)
[2023-09-13] MEDS: PRENATAL VITAMINS W/ FOLIC ACID TABLET (FP) PO SCH (10:24)
[2023-09-13] MEDS: DIVALPROEX SODIUM 250 MG TABLET E.C. PO SCH (10:29)
[2023-09-13 13:58] LABS: PH,URINE 5.5 (5.0-8.0); URINE APPEARANCE CLEAR; URINE BILIRUBIN NEGATIVE (NEGATIVE); URINE COLOR YELLOW; URINE GLUCOSE (UA) NEGATIVE (NEGATIVE); URINE KETONE TRACE (NEGATIVE); URINE LEUK ESTERASE NEGATIVE (NEGATIVE); URINE NITRITE NEGATIVE (NEGATIVE); URINE PROTEIN NEGATIVE (NEGATIVE)
[2023-09-13 14:03] LABS: POTASSIUM 4.3 mmol/L (3.5-5.1)
[2023-09-13 14:09] LABS: CALCIUM 9.1 mg/dL (8.5-10.1)
[2023-09-13 14:10] LABS: ALBUMIN 3.6 g/dl (3.4-5.0); BLOOD UREA NITROGEN 8.3 mg/dL (7-18)
[2023-09-13 14:13] LABS: CREATININE 0.7 mg/dL (0.55-1.3)
[2023-09-13 14:14] LABS: BILIRUBIN,TOTAL 0.4 mg/dL (0.2-1)
[2023-09-13 14:15] LABS: TOT PROT 6.9 g/dl (6.4-8.2)
[2023-09-13 14:19] LABS: HEMATOCRIT 38.5 % (35.4-49); HEMOGLOBIN 12.5 GM/dL (11.7-16.9); MCH 28.3 pg (25.7-33.7); MCHC 32.3 g/dl (32.0-35.9); MEAN CELL VOLUME 87.5 fl (80-96); MEAN PLT VOLUME 9.5 fl (7.5-11.1); PLATELET COUNT 316 10^3/uL (134-434); RDW 15.1 % (11.9-15.9); WHITE BLOOD COUNT 5.7 K/mm3 (4.0-10.0)
[2023-09-13] MEDS: traZODone HCL 50 MG TABLET (FP) PO SCH (21:10)
[2023-09-13] MEDS: OLANZapine 2.5 MG TABLET PO SCH (21:11)
[2023-09-13] MEDS: THIAMINE HCL 100 MG TABLET (FP) PO SCH (21:11)
[2023-09-14] MEDS: NICOTINE POLACRILEX 2 MG GUM BUC PRN (13:17)
[2023-09-15] MEDS: busPIRone HCL 5 MG TABLET PO SCH (13:43)
[2023-09-15] MEDS: IBUPROFEN 600 MG TABLET (FP) PO PRN (17:08)
[2023-09-21 06:51] VITALS: RESP 16
[2023-09-22 06:45] VITALS: BP 108/77; PULSE 82; TEMP 97.6
== END 2023-09-22 09:12 | disposition home or self-care (01) | DRG 772 ==
LOC: YASAS 18:43 → Y3E 22:51
PROVIDERS: ADMIT Allergy & Immunology; ATTEND Psychiatry & Neurology Pain Medicine
PROC: HZ42ZZZ Group Counseling for Substance Abuse Treatment, Cognitive-Behavioral (ICD-10-PCS; principal; 2023-09-12)
DX: F11.10 Opioid abuse, uncomplicated (principal); F10.10 Alcohol abuse, uncomplicated; F14.10 Cocaine abuse, uncomplicated; F17.210 Nicotine dependence, cigarettes, uncomplicated; F31.9 Bipolar disorder, unspecified; F19.282 Other psychoactive substance dependence with psychoactive substance-induced sleep disorder; F19.280 Other psychoactive substance dependence with psychoactive substance-induced anxiety disorder; I10 Essential (primary) hypertension; Z96.653 Presence of artificial knee joint, bilateral; Z59.00 Homelessness unspecified; Z56.0 Unemployment, unspecified
CPT/HCPCS: 0241U-QW; 36415; 80053; 80164; 81003; 85027; 86780

== ENCOUNTER 2023-10-28 09:50 | Inpatient (IN) | payer OTHER ==
[2023-10-28 10:40] VITALS: BMI 23.3
[2023-10-28] MEDS ORDERED: guaiFENesin 600 MG TABLET.ER (FP) PO PRN (11:40)
[2023-10-28] MEDS ORDERED: DOCUSATE SODIUM 100 MG CAPSULE (FP) PO PRN (11:40)
[2023-10-28] MEDS ORDERED: IBUPROFEN 600 MG TABLET (FP) PO PRN (11:40)
[2023-10-28] MEDS ORDERED: IBUPROFEN 400 MG TABLET (FP) PO PRN (11:40)
[2023-10-28] MEDS ORDERED: ACETAMINOPHEN 325 MG TABLET (FP) PO PRN (11:40)
[2023-10-28] MEDS ORDERED: POLYETHYLENE GLYCOL (HEALTHYLAX) 3350 17 GM PACKET PO PRN (11:40)
[2023-10-28] MEDS ORDERED: BENZOCAINE/MENTHOL (CHLORASEPTIC ) LOZENGE MM PRN (11:40)
[2023-10-28] MEDS ORDERED: LOPERAMIDE HCL 2 MG CAPSULE PO PRN (11:40)
[2023-10-28] MEDS ORDERED: MAG HYDROX/AL HYDROX/SIMETH 30 ML UNIT-DOSE CUP PO PRN (11:40)
[2023-10-28] MEDS ORDERED: P-EPHED 60MG/TRIPROLIDI 2.5MG TABLET PO PRN (11:40)
[2023-10-28] MEDS ORDERED: BENZONATATE 200 MG CAPSULE PO PRN (11:40)
[2023-10-28] MEDS ORDERED: MAGNESIUM HYDROX 2400MG/30ML ORAL SUSPENSION 30 ML CUP PO PRN (11:40)
[2023-10-28] MEDS: MELATONIN 5 MG TABLETS PO SCH (22:02)
[2023-10-28] MEDS: THIAMINE HCL 100 MG TABLET (FP) PO SCH (22:02)
[2023-10-29] MEDS: NICOTINE POLACRILEX 4 MG GUM BUC PRN (09:44)
[2023-10-29] MEDS: PRENATAL VITAMINS W/ FOLIC ACID TABLET (FP) PO SCH (09:44)
[2023-10-29] MEDS: DIVALPROEX SODIUM 250 MG TABLET E.C. PO SCH (11:33)
[2023-10-29 13:11] LABS: URINE APPEARANCE CLEAR; URINE BILIRUBIN NEGATIVE (NEGATIVE); URINE COLOR YELLOW; URINE GLUCOSE (UA) NEGATIVE (NEGATIVE); URINE KETONE NEGATIVE (NEGATIVE); URINE LEUK ESTERASE NEGATIVE (NEGATIVE); URINE NITRITE NEGATIVE (NEGATIVE); URINE PROTEIN NEGATIVE (NEGATIVE)
[2023-10-29] MEDS: OLANZapine 5 MG TABLET PO SCH (21:11)
[2023-10-29] MEDS: traZODone HCL 50 MG TABLET (FP) PO SCH (21:11)
[2023-10-29] MEDS ORDERED: DIVALPROEX SODIUM 250 MG TABLET E.C. PO SCH (22:00)
[2023-10-30 11:04] LABS: HEMOGLOBIN 12.6 GM/dL (11.7-16.9); MCH 30.5 pg (25.7-33.7); MEAN CELL VOLUME 89.5 fl (80-96); MEAN PLT VOLUME 9.3 fl (7.5-11.1); PLATELET COUNT 285 10^3/uL (134-434); RBC 4.14 M/mm3 (4.00-5.60); RDW 15.2 % (11.9-15.9); WHITE BLOOD COUNT 5.3 K/mm3 (4.0-10.0)
[2023-10-30 11:13] LABS: POTASSIUM 4.6 mmol/L (3.5-5.1)
[2023-10-30 11:20] LABS: CALCIUM 9.3 mg/dL (8.5-10.1)
[2023-10-30 11:21] LABS: ALBUMIN 3.1 g/dl (3.4-5.0); BLOOD UREA NITROGEN 14.6 mg/dL (7-18)
[2023-10-30 11:24] LABS: CREATININE 0.6 mg/dL (0.55-1.3)
[2023-10-30 11:26] LABS: BILIRUBIN,TOTAL 0.2 mg/dL (0.2-1)
[2023-11-01 07:36] VITALS: BP 115/69; PULSE 88; RESP 16; TEMP 97.8
== END 2023-11-01 13:28 | disposition home or self-care (01) | DRG 772 ==
LOC: YASAS 09:50 → Y3W 14:15
PROVIDERS: ADMIT Allergy & Immunology; ATTEND Psychiatry & Neurology Pain Medicine
PROC: HZ42ZZZ Group Counseling for Substance Abuse Treatment, Cognitive-Behavioral (ICD-10-PCS; principal; 2023-10-28)
DX: F14.20 Cocaine dependence, uncomplicated (principal); F17.210 Nicotine dependence, cigarettes, uncomplicated; F31.9 Bipolar disorder, unspecified; F19.280 Other psychoactive substance dependence with psychoactive substance-induced anxiety disorder; F19.282 Other psychoactive substance dependence with psychoactive substance-induced sleep disorder; Z59.01 Sheltered homelessness
CPT/HCPCS: 36415; 80053; 80305; 81003; 85027; 86780; 87635

== ENCOUNTER 2024-01-26 14:03 | Inpatient (IN) | payer OTHER ==
[2024-01-26 15:18] VITALS: BMI 24.0
[2024-01-26] MEDS ORDERED: IBUPROFEN 600 MG TABLET (FP) PO PRN (17:25)
[2024-01-26] MEDS ORDERED: MAGNESIUM HYDROX 2400MG/30ML ORAL SUSPENSION 30 ML CUP PO PRN (17:25)
[2024-01-26] MEDS ORDERED: BISMUTH SUBSALICYLATE 524 MG/30 ML PO PRN (17:25)
[2024-01-26] MEDS ORDERED: ONDANSETRON *ODT* 4 MG TABLET SL PRN (17:25)
[2024-01-26] MEDS ORDERED: MAG HYDROX/AL HYDROX/SIMETH 30 ML UNIT-DOSE CUP PO PRN (17:25)
[2024-01-26] MEDS ORDERED: NALOXONE (NARCAN) HCL 4 MG/0.1 ML SPRAY NS PRN (17:25)
[2024-01-26] MEDS ORDERED: BENZOCAINE/MENTHOL (CHLORASEPTIC ) LOZENGE MM PRN (17:25)
[2024-01-26] MEDS ORDERED: NALOXONE HCL 0.4 MG/ML VIAL IM PRN (17:25)
[2024-01-26] MEDS ORDERED: ACETAMINOPHEN 325 MG TABLET (FP) PO PRN (17:25)
[2024-01-26] MEDS ORDERED: BENZONATATE 200 MG CAPSULE PO PRN (17:25)
[2024-01-26] MEDS ORDERED: DICYCLOMINE HCL 10 MG CAPSULE PO PRN (17:25)
[2024-01-26] MEDS ORDERED: IBUPROFEN 400 MG TABLET (FP) PO PRN (17:25)
[2024-01-26] MEDS ORDERED: POLYETHYLENE GLYCOL (HEALTHYLAX) 3350 17 GM PACKET PO PRN (17:25)
[2024-01-26] MEDS ORDERED: guaiFENesin 600 MG TABLET.ER (FP) PO PRN (17:25)
[2024-01-26] MEDS ORDERED: LOPERAMIDE HCL 2 MG CAPSULE PO PRN (17:25)
[2024-01-26] MEDS: hydrOXYzine PAMOATE 25 MG CAPSULE (FP) PO PRN (21:33)
[2024-01-26] MEDS: THIAMINE 100 MG TABLET PO SCH (21:33)
[2024-01-26] MEDS: MELATONIN 5 MG TABLETS PO SCH (21:33)
[2024-01-26] MEDS: METHOCARBAMOL 500 MG TABLET PO PRN (21:33)
[2024-01-27] MEDS ORDERED: chlordiazePOXIDE HCL 25 MG CAPSULE PO PRN (10:29)
[2024-01-27] MEDS: PRENATAL VITAMINS W/ FOLIC ACID TABLET (FP) PO SCH (10:54)
[2024-01-27] MEDS: chlordiazePOXIDE HCL 25 MG CAPSULE PO SCH (10:54)
[2024-01-27 11:51] LABS: HEMOGLOBIN 12.4 GM/dL (11.7-16.9); MCH 28.8 pg (25.7-33.7); MCHC 32.7 g/dl (32.0-35.9); MEAN PLT VOLUME 8.8 fl (7.5-11.1); PLATELET COUNT 329 10^3/uL (134-434); RBC 4.32 M/mm3 (4.00-5.60); RDW 13.9 % (11.9-15.9); WHITE BLOOD COUNT 5.9 K/mm3 (4.0-10.0)
[2024-01-27 11:54] LABS: CHLORIDE 105 mmol/L (98-107); POTASSIUM 4.1 mmol/L (3.5-5.1); SODIUM 140 mmol/L (136-145)
[2024-01-27 12:06] LABS: ALBUMIN 3.4 g/dl (3.4-5.0); ANION GAP 7 mmol/L (4-13); CALCIUM 9.4 mg/dL (8.5-10.1); CO2 27 mmol/L (21-32); GLUCOSE,RANDOM 110 mg/dL (74-106)
[2024-01-27 12:09] LABS: CREATININE 0.8 mg/dL (0.55-1.3); SGOT/AST 15 U/L (15-37); SGPT/ALT 18 U/L (13-61)
[2024-01-27 12:11] LABS: BILIRUBIN,TOTAL 0.4 mg/dL (0.2-1); TOT PROT 6.2 g/dl (6.4-8.2)
[2024-01-27 12:12] LABS: ALK PHOS 82 U/L (45-117)
[2024-01-27] MEDS: OLANZapine 2.5 MG TABLET PO SCH (22:24)
[2024-01-27] MEDS: DIVALPROEX SODIUM 250 MG TABLET E.C. PO SCH (22:24)
[2024-01-27] MEDS: traZODone HCL 100 MG TABLET (FP) PO SCH (22:25)
[2024-01-28 17:09] VITALS: BP 107/62; PULSE 72; RESP 18; TEMP 100
[2024-01-29] MEDS ORDERED: chlordiazePOXIDE HCL 25 MG CAPSULE PO SCH (05:00)
[2024-01-30] MEDS ORDERED: chlordiazePOXIDE HCL 10 MG CAPSULE PO PRN
[2024-01-30] MEDS ORDERED: chlordiazePOXIDE HCL 10 MG CAPSULE PO SCH (05:00)
[2024-01-31] MEDS ORDERED: chlordiazePOXIDE HCL 10 MG CAPSULE PO SCH (05:00)
[2024-02-01] MEDS ORDERED: chlordiazePOXIDE HCL 10 MG CAPSULE PO ONE (05:00)
== END 2024-01-28 17:33 | disposition left against medical advice (07) | DRG 770 ==
LOC: YASAS 14:03 → Y3N 17:15
PROVIDERS: ADMIT Allergy & Immunology; ATTEND Surgery
PROC: HZ2ZZZZ Detoxification Services for Substance Abuse Treatment (ICD-10-PCS; principal; 2024-01-26)
DX: F10.230 Alcohol dependence with withdrawal, uncomplicated (principal); F14.20 Cocaine dependence, uncomplicated; F17.210 Nicotine dependence, cigarettes, uncomplicated; F31.9 Bipolar disorder, unspecified; F19.24 Other psychoactive substance dependence with psychoactive substance-induced mood disorder; G47.00 Insomnia, unspecified; K74.60 Unspecified cirrhosis of liver; Z56.0 Unemployment, unspecified; Z59.01 Sheltered homelessness
CPT/HCPCS: 36415; 80053; 80164; 80305; 80307; 85027; 86780

== ENCOUNTER 2024-07-13 11:12 | Inpatient (IN) | payer OTHER ==
[2024-07-13 12:33] VITALS: BMI 25.7
[2024-07-13] MEDS ORDERED: guaiFENesin 600 MG TABLET.ER (FP) PO PRN (12:57)
[2024-07-13] MEDS ORDERED: POLYETHYLENE GLYCOL (HEALTHYLAX) 3350 17 GM PACKET PO PRN (12:57)
[2024-07-13] MEDS ORDERED: BENZOCAINE/MENTHOL (CHLORASEPTIC ) LOZENGE MM PRN (12:57)
[2024-07-13] MEDS ORDERED: MAG HYDROX/AL HYDROX/SIMETH 30 ML UNIT-DOSE CUP PO PRN (12:57)
[2024-07-13] MEDS ORDERED: IBUPROFEN 400 MG TABLET (FP) PO PRN (12:57)
[2024-07-13] MEDS ORDERED: ONDANSETRON *ODT* 4 MG TABLET SL PRN (12:57)
[2024-07-13] MEDS ORDERED: MAGNESIUM HYDROX 2400MG/30ML ORAL SUSPENSION 30 ML CUP PO PRN (12:57)
[2024-07-13] MEDS ORDERED: BENZONATATE 200 MG CAPSULE PO PRN (12:57)
[2024-07-13] MEDS ORDERED: DICYCLOMINE HCL 10 MG CAPSULE PO PRN (12:57)
[2024-07-13] MEDS ORDERED: IBUPROFEN 600 MG TABLET (FP) PO PRN (12:57)
[2024-07-13] MEDS ORDERED: NALOXONE (NARCAN) HCL 4 MG/0.1 ML SPRAY NS PRN (12:57)
[2024-07-13] MEDS ORDERED: NICOTINE 14 MG/24 HOURS TOPICAL PATCH TD ONE (14:00)
[2024-07-13] MEDS ORDERED: PRENATAL VITAMINS W/ FOLIC ACID TABLET (FP) PO ONE (14:00)
[2024-07-13] MEDS: PRENATAL VITAMINS W/ FOLIC ACID TABLET (FP) PO SCH (14:04)
[2024-07-13] MEDS: NICOTINE 14 MG/24 HOURS TOPICAL PATCH TD SCH (14:04)
[2024-07-13] MEDS: ACAMPROSATE CALCIUM 333 MG TABLET.DR PO SCH (14:12)
[2024-07-13] MEDS: diazePAM 5 MG TABLET PO SCH (17:33)
[2024-07-13] MEDS: NICOTINE POLACRILEX 2 MG GUM BUC PRN (19:31)
[2024-07-13] MEDS: THIAMINE 100 MG TABLET PO SCH (22:25)
[2024-07-13] MEDS: MELATONIN 5 MG TABLETS PO SCH (22:25)
[2024-07-13] MEDS: diazePAM 5 MG TABLET PO PRN (22:27)
[2024-07-14] MEDS: METHOCARBAMOL 500 MG TABLET PO PRN (10:11)
[2024-07-14] MEDS: hydrOXYzine PAMOATE 25 MG CAPSULE (FP) PO PRN (10:11)
[2024-07-14 12:28] LABS: HEMATOCRIT 40.1 % (35.4-49); HEMOGLOBIN 12.9 GM/dL (11.7-16.9); MCH 28.8 pg (25.7-33.7); MCHC 32.2 g/dl (32.0-35.9); MEAN CELL VOLUME 89.6 fl (80-96); MEAN PLT VOLUME 9.2 fl (7.5-11.1); PLATELET COUNT 293 10^3/uL (134-434); RBC 4.47 M/mm3 (4.00-5.60); RDW 14.4 % (11.9-15.9); WHITE BLOOD COUNT 5.5 K/mm3 (4.0-10.0)
[2024-07-14 12:29] LABS: POTASSIUM 4.2 mmol/L (3.5-5.1)
[2024-07-14 12:33] LABS: CALCIUM 9.4 mg/dL (8.5-10.1)
[2024-07-14 12:34] LABS: ALBUMIN 3.2 g/dl (3.4-5.0); BLOOD UREA NITROGEN 10.8 mg/dL (7-18)
[2024-07-14 12:37] LABS: CREATININE 0.8 mg/dL (0.55-1.3)
[2024-07-14 12:39] LABS: BILIRUBIN,TOTAL 0.3 mg/dL (0.2-1); TOT PROT 6.2 g/dl (6.4-8.2)
[2024-07-14] MEDS: traZODone HCL 50 MG TABLET (FP) PO SCH (22:06)
[2024-07-15] MEDS: diazePAM 5 MG TABLET PO SCH (05:36)
[2024-07-16] MEDS: diazePAM 5 MG TABLET PO SCH (05:43)
[2024-07-16] MEDS: NALOXONE (NYS OPIOID OVERDOSE PROGRAM) 4 MG/0.1 ML SPRAY NS SCH (10:40)
[2024-07-16] MEDS: propRANOLol HCL 10 MG TABLET PO SCH (14:01)
[2024-07-16] MEDS: NICOTINE POLACRILEX 2 MG GUM BUC PRN (18:49)
[2024-07-17] MEDS: diazePAM 5 MG TABLET PO ONE (05:53)
[2024-07-17] MEDS: BISMUTH SUBSALICYLATE 262 MG/15 ML BTL PO PRN (08:59)
[2024-07-17] MEDS: LOPERAMIDE HCL 2 MG CAPSULE PO PRN (16:50)
[2024-07-17] MEDS: ACETAMINOPHEN 325 MG TABLET (FP) PO PRN (16:50)
[2024-07-18 06:21] VITALS: RESP 16
[2024-07-18 08:55] VITALS: BP 99/69; PULSE 80; TEMP 97.6
== END 2024-07-18 11:18 | disposition other institution (70) | DRG 774 ==
LOC: YASAS 11:12 → Y6N 13:23
PROVIDERS: ADMIT Allergy & Immunology; ATTEND Surgery
PROC: HZ2ZZZZ Detoxification Services for Substance Abuse Treatment (ICD-10-PCS; principal; 2024-07-13)
DX: F10.230 Alcohol dependence with withdrawal, uncomplicated (principal); F14.10 Cocaine abuse, uncomplicated; F17.210 Nicotine dependence, cigarettes, uncomplicated; F19.282 Other psychoactive substance dependence with psychoactive substance-induced sleep disorder; F19.280 Other psychoactive substance dependence with psychoactive substance-induced anxiety disorder; F19.24 Other psychoactive substance dependence with psychoactive substance-induced mood disorder; F41.8 Other specified anxiety disorders; K70.30 Alcoholic cirrhosis of liver without ascites; Z59.01 Sheltered homelessness
CPT/HCPCS: 36415; 80053; 80305; 80307; 82140; 82962; 85027; 86780; 87811; 93005; 93010

== ENCOUNTER 2024-07-18 11:24 | Inpatient (IN) | payer OTHER ==
[2024-07-18 11:30] VITALS: RESP 16
[2024-07-18] MEDS ORDERED: BENZONATATE 200 MG CAPSULE PO PRN (14:14)
[2024-07-18] MEDS ORDERED: NALOXONE HCL 0.4 MG/ML VIAL IVPUSH PRN (14:14)
[2024-07-18] MEDS ORDERED: POLYETHYLENE GLYCOL (HEALTHYLAX) 3350 17 GM PACKET PO PRN (14:14)
[2024-07-18] MEDS ORDERED: guaiFENesin 600 MG TABLET.ER (FP) PO PRN (14:14)
[2024-07-18] MEDS ORDERED: NALOXONE (NARCAN) HCL 4 MG/0.1 ML SPRAY NS PRN (14:14)
[2024-07-18] MEDS ORDERED: MAGNESIUM HYDROX 2400MG/30ML ORAL SUSPENSION 30 ML CUP PO PRN (14:14)
[2024-07-18] MEDS ORDERED: MAG HYDROX/AL HYDROX/SIMETH 30 ML UNIT-DOSE CUP PO PRN (14:14)
[2024-07-18] MEDS ORDERED: BENZOCAINE/MENTHOL (CHLORASEPTIC ) LOZENGE MM PRN (14:14)
[2024-07-18] MEDS ORDERED: ACETAMINOPHEN 325 MG TABLET (FP) PO PRN (14:14)
[2024-07-18] MEDS ORDERED: IBUPROFEN 400 MG TABLET (FP) PO PRN (14:14)
[2024-07-18] MEDS ORDERED: IBUPROFEN 600 MG TABLET (FP) PO PRN (14:14)
[2024-07-18] MEDS ORDERED: CYCLOBENZAPRINE HCL 5 MG TABLET PO PRN (14:17)
[2024-07-18] MEDS: NICOTINE POLACRILEX 4 MG LOZENGE BC PRN (16:47)
[2024-07-18] MEDS: hydrOXYzine PAMOATE 25 MG CAPSULE (FP) PO PRN (17:55)
[2024-07-18] MEDS: MELATONIN 5 MG TABLETS PO SCH (21:31)
[2024-07-18] MEDS: THIAMINE 100 MG TABLET PO SCH (21:31)
[2024-07-18] MEDS: traZODone HCL 50 MG TABLET (FP) PO SCH (21:32)
[2024-07-18] MEDS: ACAMPROSATE CALCIUM 333 MG TABLET.DR PO SCH (21:32)
[2024-07-18] MEDS: busPIRone HCL 5 MG TABLET PO SCH (21:32)
[2024-07-18] MEDS: LOPERAMIDE HCL 2 MG CAPSULE PO PRN (21:33)
[2024-07-18] MEDS: NICOTINE POLACRILEX 4 MG GUM BUC PRN (21:34)
[2024-07-19] MEDS: NICOTINE 14 MG/24 HOURS TOPICAL PATCH TD SCH (09:39)
[2024-07-19] MEDS: PRENATAL VITAMINS W/ FOLIC ACID TABLET (FP) PO SCH (09:40)
[2024-07-20 06:38] VITALS: BP 112/74; PULSE 84; TEMP 98.2
[2024-07-20] MEDS: METHOCARBAMOL 500 MG TABLET PO PRN (10:45)
[2024-07-20] MEDS: NALOXONE (NYS OPIOID OVERDOSE PROGRAM) 4 MG/0.1 ML SPRAY NS SCH (13:28)
== END 2024-07-20 13:28 | disposition home or self-care (01) | DRG 772 ==
LOC: YASAS 11:24 → Y3E 11:28
PROVIDERS: ADMIT Psychiatry & Neurology Pain Medicine; ATTEND Psychiatry & Neurology Pain Medicine
PROC: HZ42ZZZ Group Counseling for Substance Abuse Treatment, Cognitive-Behavioral (ICD-10-PCS; principal; 2024-07-18)
DX: F14.20 Cocaine dependence, uncomplicated (principal); F17.210 Nicotine dependence, cigarettes, uncomplicated; F31.9 Bipolar disorder, unspecified; F19.282 Other psychoactive substance dependence with psychoactive substance-induced sleep disorder; F19.280 Other psychoactive substance dependence with psychoactive substance-induced anxiety disorder; F19.24 Other psychoactive substance dependence with psychoactive substance-induced mood disorder; F41.9 Anxiety disorder, unspecified; K70.30 Alcoholic cirrhosis of liver without ascites